=== PATIENT | female | born 1990 | race Caucasian/White ===

== ENCOUNTER 2024-08-06 12:36 | Outpatient (AMB) | payer OTHER, SELFPAY ==
[2024-08-06 12:40] VITALS: BP 118/62; PULSE 103; O2SAT 98; BMI 20.7
--- NOTE | 2024-08-06 12:40 | MHC.OFFVIS ---
Vital Signs 08/06/24 12:40 Height 4 ft 11 in Weight 102 lb 4.712 oz BMI 20.7 BP 118/62 Blood Pressure Location Lt brachial Position Sitting Pulse 103 H Pulse Source Pulse Oximeter Pulse Oximetry (%) 98 Oxygen Delivery Method Room Air Intake Visit Reasons: polyarthritis/CM APT Intake Note: Patient presents for follow up on polyarthritis and patient is requesting refill of the Benlysta Allergies No Known Allergies Allergy (Verified 08/06/24 12:44) HPI HPI polyarthritis/CM APT: Details: During the summer she had surgery for endometriosis. She continues to experience gassiness with abdominal pain. She has seen GI and reports a colonoscopy was normal. She has not followed up with GI. She stopped taking OTC simethicone. She has not been on hydroxychloroquine for 1 month due to concern for hydroxychloroquine causing GI discomfort and gassiness. She has a rash on her leg that started yesterday. She denies fevers, oral ulcers, dyspnea, pleurisy, Raynaud's phenomenon, urinary symptoms. She has been going to the gym and has pain associated with her workout. No new joint swelling. [facility] Medical History (Updated 08/06/24 @ 15:43 by Joe Sandoval MD) Endometriosis determined by laparoscopy Endometriosis Polyarthritis Family History (Updated 08/06/24 @ 12:54 by Latia Avendaño CMA) Mother Diabetes Father Multiple sclerosis Social History (Updated 08/06/24 @ 12:55 by Latia Avendaño CMA) Alcohol intake: current Comment: socially Patient Tobacco Use Status: Never used Tobacco Review of Systems Const All systems reviewed & are unremarkable except as noted in HPI and below Physical Exam Vital Signs: Last Vital Signs Pulse 103 H 08/06/24 12:40 BP 118/62 08/06/24 12:40 Pulse Ox 98 08/06/24 12:40 Oxygen Delivery Method Room Air 08/06/24 12:40 BMI result Body Mass Index 20.7 Const Other: General: Comfortable CVS: RRR Respiratory: clear to auscultation bilaterally. Good respiratory effort Skin: No lesions seen MSK: No tenderness of upper extremities or synovitis present. Good range of motion of upper extremities. Tender bilateral knees. Good range of motion of lower extremities. Assessment & Plan Assessment & Plan (1) Systemic lupus erythematosus: Comment: Diagnosed in 2021 with secondary Sjogren syndrome. Positive GERALDINE 1:640, double-stranded DNA, SSA antibody, low C4, elevated ESR, hair loss, inflammatory arthritis, brain fog, livedo reticularis on back. Hydroxychloroquine started 11/14/2021. Methotrexate 03/16/2022 to 07/17/2022 discontinued due to GI upset. IV Benlysta started 05/17/2022 and changed to subcutaneous injection 06/16/2023 for convenience. Last hydroxychloroquine surveillance exam 01/15/2024. SLE is controlled on her current regimen. She has been experiencing chronic gassiness with abdominal discomfort. We will change hydroxychloroquine to brand Plaquenil in case she is experiencing side effects from hydroxychloroquine, which can be offset by brand Plaquenil. 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 service 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 (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) drug therapy Category: Medical Plan: See above (3) Sjogren syndrome: Comment: Sicca symptoms are controlled Code(s): M35.00 - Sjogren syndrome, unspecified Category: Medical Qualifiers: Sjogren organ or system involvement: without extraglandular involvement Qualified Code(s): M35.00 - Sjogren syndrome, unspecified Plan: Monitor clinically Orders: Orders Erythrocyte Sedimentation Rate Today M32.9 - Systemic lupus erythematosus, unspecified, Z79.899 - Other fdc (current) drug therapy Complete Blood Count Auto Diff Today Z79.60 - termite control service 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 (current) use of unspecified immunomodulators and immunosuppressants Creatinine Today Z79.60 - termite control service 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 (current) use of unspecified immunomodulators and immunosuppressants Aspartate Amino Transferase Today Z79.60 - termite control service 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 (current) use of unspecified immunomodulators and immunosuppressants Complement C3 Today M32.9 - Systemic lupus erythematosus, unspecified, Z79.899 - Other termite control service 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 (current) drug therapy Alanine Aminotransferase Today Z79.60 - FDC (current) use of unspecified immunomodulators and immunosuppressants C Reactive Protein Today M32.9 - Systemic lupus erythematosus, unspecified, Z79.899 - Other termite control service 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 (current) drug therapy Complement C4 Today M32.9 - Systemic lupus erythematosus, unspecified Anti DNA DS Antibody Today M32.9 - Systemic lupus erythematosus, unspecified, Z79.899 - Other termite control service 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 (current) drug therapy UA w Microscopic Today M32.9 - Systemic lupus erythematosus, unspecified Protein Creatinine Ratio, Ur Today M32.9 - Systemic lupus erythematosus, unspecified Medications: New belimumab (Benlysta) inject into upper thigh or abdomen; rotate sites PA needed. Continuity of treatment 200 mg subcut QWEEK 4 mL 2RF hydroxychloroquine 200 mg PO DAILY 90 tabs 1RF Plaquenil (hydroxychloroquine) Please process PA for brand only. 200 mg PO DAILY 30 tabs 5RF NS Coding Level of Care Code Est Pt Level 4 (13906) Complex EM visit Add On G2211 Diagnoses Other forms of systemic lupus erythematosus, unspecified organ involvement status M32.8 Systemic lupus erythematosus organ involvement: unspecified Systemic lupus erythematosus type: other Other fdc (current) drug therapy Z79.899 Sjogren's syndrome without extraglandular involvement M35.00 Sjogren organ or system involvement: without extraglandular involvement
== END 2024-08-06 13:28 | disposition home or self-care (01) ==
PROVIDERS: PCP Internal Medicine Rheumatology; Visit Provider Internal Medicine Rheumatology
DX: M32.8 Other forms of systemic lupus erythematosus (principal); Z79.899 Other long term (current) drug therapy; M35.00 Sjogren syndrome, unspecified
CPT/HCPCS: 99214; G2211

== ENCOUNTER → 2024-08-06 12:36 | Outpatient (BNVA) | payer OTHER, SELFPAY | PROVIDERS: PCP Internal Medicine Rheumatology; Visit Provider Internal Medicine Rheumatology | DX: M32.8 Other forms of systemic lupus erythematosus (principal); M35.00 Sjogren syndrome, unspecified; Z79.899 Other long term (current) drug therapy | CPT/HCPCS: 99212 ==

== ENCOUNTER 2024-11-05 13:33 | Outpatient (AMB) | payer OTHER, SELFPAY ==
[2024-11-05 13:46] VITALS: BP 90/50; PULSE 86; O2SAT 97; BMI 21.1
--- NOTE | 2024-11-05 13:46 | MHC.OFFVIS ---
Vital Signs 11/05/24 13:46 Height 4 ft 11 in Weight 104 lb 4.458 oz BMI 21.1 BP 90/50 L Blood Pressure Location Lt brachial Position Sitting Pulse 86 Pulse Source Pulse Oximeter Pulse Oximetry (%) 97 Oxygen Delivery Method Room Air Intake Visit Reasons: 3 mo follow up Intake Note: Patient presents for follow up on polyarthritis. Right hand pain for the past month. Allergies No Known Allergies Allergy (Verified 08/06/24 12:44) HPI HPI 3 mo follow up: Details: MS 1-2 hours. R hand swelling started on and off for a month. She has tightness in chest with exertion such as when she is using treadmill. No fevers, rash, frothy urine or dysuria or hematuria. +urinary frequency Intermittent pleurisy Intermittent ulcers in mouth PFSH Medical History Endometriosis determined by laparoscopy Endometriosis Polyarthritis Family History Mother Diabetes Father Multiple sclerosis Social History Alcohol intake: current Comment: socially Patient Tobacco Use Status: Never used Tobacco Physical Exam Vital Signs: Last Vital Signs Pulse 86 11/05/24 13:46 BP 90/50 L 11/05/24 13:46 Pulse Ox 97 11/05/24 13:46 Oxygen Delivery Method Room Air 11/05/24 13:46 BMI result Body Mass Index 21.1 Const Other: General: Comfortable CVS: RRR Respiratory: clear to auscultation bilaterally. Good respiratory effort Skin: No lesions seen MSK: Tenderness of bilateral PIP in hands. Mild synovitis of right 2nd and 4th PIP. Normal range of motion of upper extremities. Tender bilateral knees. Increased laxity of bilateral patella. Normal range of motion of lower extremities. Assessment & Plan Assessment & Plan (1) Systemic lupus erythematosus: Comment: She has developed mild inflammatory arthritis involving her right hand, intermittent pleurisy and urinary frequency. I have ordered labs to assess for lupus disease activity and urine studies with culture to rule out UTI. She has been experiencing chronic gassiness with abdominal discomfort. I will change hydroxychloroquine to brand Plaquenil in case she is experiencing side effects from hydroxychloroquine, which can be offset by brand Plaquenil. 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 Positive GERALDINE 1:640, double-stranded DNA, SSA antibody, low C4, elevated ESR, hair loss, inflammatory arthritis, brain fog, livedo reticularis on back. Hydroxychloroquine started 11/14/2021. Methotrexate 03/16/2022 to 07/17/2022 discontinued due to GI upset. IV Benlysta started 05/17/2022 and changed to subcutaneous injection 06/16/2023 for convenience. Code(s): M32.9 - Systemic lupus erythematosus, unspecified Category: Medical Qualifiers: Systemic lupus erythematosus organ involvement: unspecified Systemic lupus erythematosus type: other Qualified Code(s): M32.8 - Other forms of systemic lupus erythematosus Plan: PA for brand Plaquenil 200 mg daily due to GI side effect of gassiness and abdominal discomfort. Last VF 07/2024. Continue Benlysta 200 mg subcutaneous injection weekly Labs for disease and drug monitoring on high-risk medication ordered. She will return for labs because she is feeling dizzy at this time. Her blood pressure is 90/50. Encouraged her to hydrate well. If urine studies are negative for UTI, I will prescribe prednisone course I recommend PCP follow-up due to decreased appetite and ongoing GI symptoms. 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 Code(s): M22.41 - Chondromalacia patellae, right knee; M22.42 - Chondromalacia patellae, left knee Category: Medical Plan: PT ordered (3) Other group home (current) drug therapy: Code(s): Z79.899 - Other group home (current) drug therapy Category: Medical Plan: See above (4) Sjogren syndrome: Comment: Sicca symptoms are controlled Code(s): M35.00 - Sjogren syndrome, unspecified Category: Medical Qualifiers: Sjogren organ or system involvement: without extraglandular involvement Qualified Code(s): M35.00 - Sjogren syndrome, unspecified Plan: Monitor clinically Orders: Orders Urine Culture Today R35.0 - Frequency of micturition PT Evaluation and Treatment Today M22.41 - Chondromalacia patellae, right knee, M22.42 - Chondromalacia patellae, left knee Coding Level of Care Code Est Pt Level 4 (21346) Complex EM visit Add On G2211 Diagnoses Other forms of systemic lupus erythematosus, unspecified organ involvement status M32.8 Systemic lupus erythematosus organ involvement: unspecified Systemic lupus erythematosus type: other Chondromalacia of both patellae M22.41; M22.42 Other group home (current) drug therapy Z79.899 Sjogren's syndrome without extraglandular involvement M35.00 Sjogren organ or system involvement: without extraglandular involvement
--- OUTSIDE RECORDS SUMMARY | 2024-11-05 16:25 | XMS_ITS | Encounter Summary ---
Author Organization [facility] Address [address] [place] [address] Care Team Providers Care Quality Assurance Supervisor Chassis Name Role Phone Mariaelena Bee DO Primary Care Provider [phone] Reason for Referral * Consultation (Routine) - Authorized Specialty Diagnoses / Procedures Referred By Contact Referred To Contact Physical Medicine and Rehabilitation Diagnoses Postural low back pain Kat Fraser NP [address] [place] [address] Phone: tel: fax: [facility] [address] [place] [address] Phone: tel: fax: Referral ID Status Reason Start Date Expiration Date Visits Requested Visits Authorized [id number] Authorized Specialty Services Required 10/31/2024 10/31/2025 1 1 Reason for Visit * Reason Onset Date Comments Referral 10/31/2024 Encounter Details Date Type Department Care Team (Late st Contact Info) Description 10/31/2024 Telephone Internal Medicine - [facility] [address] [place] [address] Mariaelena Bee DO [address] [place] [address] Referral Social History Tobacco Use Types Packs/Day Years Used Date Smoking Tobacco: Never Smokeless Tobacco: Never Alcohol Use Standard Drinks/Week Comments Yes 0 (1 standard drink = 0.6 oz pur e alcohol) Comments No Sex and Gender Information Value Date Recorded Sex Assigned at Not on file Legal Sex Female 8:28 AM EST Gender Identity Not on file Sexual Orientation Not on file documented as of this encounter Progress Notes * Janneth Cano MA - 10/31/2024 4:54 PM EST Referral pending. * Cheryl Wheeler - 10/31/2024 4:49 PM EST Ok thank you. The pt stated that she wasn't sure if they were still there, she said that it would be ok to do the referral to another location.Any location that is covered by her insurance is ok withher. Thank you * Lizzie Lowe MA - 10/31/2024 4:41 PM EST We do not have physiatry at the [facility] any longer, where does pt want to go? * Cheryl Wheeler - 10/31/2024 4:24 PM EST Referral Request: What insurance does the patient have today[facility] Referrals cannot be processed if the insurance is not accurate. If the insurance listed above in red is NO BILLING INFORMATION FOUND FOR THIS ENCOUTNER The patients correct insurance must be obtained and registered in [facility] or their referral can not be processed. Is this a retro request? no. If yes for what date of service do you need the retro referral? not applicable Who is calling to request this referral? pt If the caller is not the patient, what is their name? not applicable Ask the patient WHO referred them to this specialty: Patient self referred FIRST and LAST NAME of SPECIALIST PATIENT is seeing: unsure What specialty is this? physiatry DIAGNOSIS Patient is being seen for (Not a body part or a procedure): postural issues/muscular pain Have you seen this SPECIALIST for this PROBLEM/DX before? If YES, when? Yes. 5 years Have you checked REVIEW or the APPT DESK to see if this referral has already been done or has visits left? yes Is this visit: Follow Up Address of Specialist: [facility] [address] [place] Phone # of Specialist: [phone] Fax #: (if applicable): unknown Does patient have an appointment scheduled?: no Date of appointment- (including a retro-request): n/a Is this appointment related to: n/a documented in this encounter Plan of Treatment Scheduled Referrals Name Type Priority Associated Diagnoses Order Schedule Ambulatory referral to Physical Medicine Rehab Outpatient Referral Routine Postural low back pain 1 Occurrences starting 10/31/2024 until 10/31/2025 documented as of this encounter Visit Diagnoses Diagnosis Postural low back pain- Primary Lumbago documented in this encounter Care Teams Quality Assurance Supervisor Chassis Relationship Specialty Start Date End Date Mariaelena Bee DO [address] [place] [address] PCP - General 06/27/24 documented as of this encounter
--- OUTSIDE RECORDS SUMMARY | 2024-11-05 16:25 | XMS_ITS | Clinical Summary ---
Author Organization [facility] [address] [facility] Building Address [address] [place] [address] Phone Care Team Providers Care Bilingual Legal Assistant Name Role Phone Mariaelena Bee DO Primary Care Provider [phone] Allergies Active Allergy Reactions Criticality Noted Date Comments Other 08/19/2021 Seasonal Medications belimumab (Benlysta) 200 mg/mL auto-injector Inject 200 mg into the skin once a week. Active UNABLE TO FIND Apply topically. MINOXIDIL EX Active hydroxychloroqui ne (PLAQUENIL) 200 mg tablet Take 1 tablet (200 mg total) by mouth 1 (one) time each day. 2 Active amphetamine-dext roamphetamine (ADDERALL) 20 mg tablet Take 1.5 tablets (30 mg total) by mouth 1 (one) time each day. Active turmeric 400 mg capsule Take by mouth. 0 Active OMEGA-3 FATTY ACIDS ORAL Take by mouth. [place]-3 Fatty Acids (FISH OIL) 600 MG Cap 0 Active famotidine (PEPCID) 20 mg tablet TAKE 1 TABLET BY MOUTH TWICE A DAY 180 tablet 1 4 Active fluticasone propionate (FLONASE) 50 mcg/actuation nasal spray Administer 2 sprays into each nostril 1 (one) time each day if needed for rhinitis. 48 mL 1 4 Active benzoyl peroxide (BENZAC AC) 10 % external wash Apply 1 Application topically 1 (one) time each day. 5 Active ketoconazole (NIZORAL) 2 % shampoo Apply 1 Application topically 2 (two) times a week. 5 Active LORazepam (ATIVAN) 0.5 mg tablet Take 1 tablet (0.5 mg total) by mouth every 8 (eight) hours if needed. Max Daily Amount: 1.5 mg 5 Active norethindrone (MICHELE,MERVIN,HE ATHER,MICRONOR) 0.35 mg tablet Take 1 tablet (0.35 mg total) by mouth 1 (one) time each day. 28 tablet 11 5 026 Active fexofenadine (PIPPA) 180 mg tabletIndication s:Ear itch Take 1 tablet (180 mg total) by mouth 1 (one) time each day if needed (allergies). 90 tablet 5 Active albuterol HFA (PROAIR HFA ; PROVENTIL HFA ; VENTOLIN HFA) 90 mcg/actuation inhalerIndicatio ns:Mild intermittent reactive airway disease without complication Inhale 2 puffs by mouth every 6 (six) hours if needed for wheezing. 6.7 g 1 5 Active naproxen (NAPROSYN) 500 mg tablet Take 1 tablet (500 mg total) by mouth 2 (two) times a day with meals. 180 each 4 025 nystatin (MYCOSTATIN) 100,000 unit/mL suspension Take 7.5 mL by mouth 3 (three) times a day for 7 days. Swish in mouth and spit out. 150 mL 5 025 Active Problems Problem Noted Date Diagnosed Date Secondary Sjogren's syndrome 11/08/2021 Systemic lupus erythematosus 10/18/2021 Overview (07/03/2024): [facility] Shoulder pain, bilateral 08/19/2021 Endometriosis 03/02/2020 Migraine with aura and witho ut status migrainosus, not intractable 08/23/2019 Overview (07/03/2024): Dr Ferguson PTSD (post-traumatic stress disorder) 05/07/2019 ADHD 04/25/2019 Overview (07/03/2024): [facility] Allergic rhinitis 04/25/2019 Anxiety 04/25/2019 GERD (gastroesophageal reflux disease) 9 Ovarian cyst 04/25/2019 Encounters Date Type Department Care Team Description 10/31/2024 Telephone Internal Medicine - [address] [phone] Mariaelena Bee DO Referral 10/02/2024 11:30 AM EST Office Visit Marketing Support Specialist - [address] [phone] Popeye Morris MD Oral thrush (Primary Dx); Mild intermittent reactive airway disease without complication 09/30/2024 Telephone Internal Medicine - [address] [phone] Mariaelena Bee DO Thrush (mouth) 09/12/2024 Telephone Obstetrics and Gynecology - [address] [phone] Haley Abad DO Vaginitis/Bacterial Vaginosis 09/04/2024 1:30 PM EST Office Visit Obstetrics and Gynecology - [address] [phone] Haley Abad DO Chronic pelvic pain in female (Primary Dx); Endometriosis 09/03/2024 2:00 PM EST Consult Gastroenterology - [place] [address] [place] [id number] Brenda Lowery NP Abdominal bloating (Primary Dx); Gastroesophageal reflux disease without esophagitis; Gassiness 08/22/2024 6:05 PM EST - 08/22/2024 11:59 PM EST Hospital Encounter Radiology Department - [address] [phone] Pelvic pain in female Discharge Disposition: Home or Self Care from Last 3 Months Immunizations Name Administration Dates Next Due HPV 9-valent (Gardisil) 9yo to less than 46yo 11/03/2015 HPV, Quadrivalent 08/28/2015,11/14/2007,06/05/20 07 Hepatitis B (Emzinuz-I-Myjjc , Recombivax HB-Adult) 19yo and older 09/13/2016,06/09/2010,06/27/2001,02/16,01/11/2001 Influenza trivalent, 0.5mL, preservative free (Fluarix; FluLaval; Fluzone) ages 6mo and older (Afluria) 3 years and older 08/19/2008 MMR, measles mumps and rubel la Live (Priorix; M-M-R II) 12mo and older 09/13/2016,06/09/2010,04/11/1995,12/01 Meningococcal MCV4P 06/05/2007 Td Tetanus diptheria (Tdvax) 7yo and older 12/02/2021,06/13/2007 Tdap Tetanus diptheria acell ular pertussis (Boostrix; Adacel) 7yo and older 06/05/2007 Surgical History Surgery Date Site/Laterality Comments OTHER SURGICAL HISTORY PROCEDURE: ---- OTHER ----; COMMENT: therapeutic OTHER SURGICAL HISTORY PROCEDURE: ---- OTHER ----; COMMENT: laser PRK on both eyes. OTHER SURGICAL HISTORY PROCEDURE: ---- OTHER ----; COMMENT: wisdom teeth removal under general. OTHER SURGICAL HISTORY 01/2024 PROCEDURE: HISTORY OTHER; COMMENT: endometriosis Medical History Medical History Date Comments Acne 04/25/2019 DX:Acne ADD (attention deficit disorder) 04/25/2019 DX:ADD (attention deficit disorder) Anxiety 04/25/2019 DX:Anxiety Depression 04/25/2019 DX:Depression GERD (gastroesophageal reflu x disease) 04/25/2019 DX:GERD (gastroesophageal re flux disease) Ovarian cyst 04/25/2019 DX:Ovarian cyst Allergic rhinitis 04/25/2019 DX:Allergic rh initis History of recurrent ear infection 04/25/2019 DX:History of recurrent ear infection; COMMENT: Prevented w/ persistent use of antihystamines Carpal tunnel syndrome 04/25/2019 DX:Carpal tunnel syndrome Herpes zoster 04/25/2019 DX:Herpes zoster ; COMMENT: 07/2017-Txd w/ Valtrex & Gabapentin Family History Medical History Relation Name Comments Breast cancer Aunt 1 <age 40 Other: Other Aunt 2 precancerous ?o varian cyst Other: guillian barre syndrome Father Heart attack Maternal Grandfather Diabetes Maternal Grandmother Diabetes Mother asthma, fibroid s Bladder Cancer Paternal Grandfather age 70, CAD Diabetes Paternal Grandmother Osteopo rosis Hypertension Paternal Grandmother Asthma Sister 1 Other: hip dysplasia Sister 2 Relation Name Status Comments Aunt 1 Aunt 2 Father Alive Maternal Grandfather Maternal Grandmother Alive Mother Alive Paternal Grandfather Paternal Grandmother Alive Sister 1 Alive Sister 2 Alive Sister 3 Alive Sister 4 Alive Social History Tobacco Use Types Packs/Day Years Used Date Smoking Tobacco: Never Smokeless Tobacco: Never Tobacco Cessation:Counseling Given: Not Answered Alcohol Use Standard Drinks/Week Comments Yes 0 (1 standard drink = 0.6 oz pur e alcohol) Comments No Sex and Gender Information Value Date Recorded Sex Assigned at Not on file Legal Sex Female 8:28 AM EST Gender Identity Not on file Sexual Orientation Not on file Obstetrics History Last Filed Vital Signs Vital Sign Reading Time Taken Comments Blood Pressure 105/70 10/02/2024 11:39 AM EST Pulse 95 10/02/2024 11:39 AM EST Temperature 36.7 ??C (98.1 ??F) 07/05/2024 6:05 AM ES T Respiratory Rate 18 09/04/2024 1:44 PM EST Oxygen Saturation 96% 09/03/2024 2:07 PM EST Inhaled Oxygen Concentration - - Weight 48 kg (105 lb 12.8 oz) 10/02/2024 11:39 A M EST Height 149.9 cm (4' 11 ) 10/02/2024 11:39 AM EST Body Mass Index 21.37 10/02/2024 11:39 AM EST Plan of Treatment Health Maintenance Due Date Last Done Comments COVID-19 Vaccine (#1) 1995 Pneumococcal Vaccine: Pediatrics (0 to 5 Years) and At-Risk Patients (6 to 64 Years) (1 of 2 - PCV) 2009 Depression Screening 08/06/2022 Social Influencers of Health Screening 08/06/2022 Influenza Vaccine (#1) 2024 08/19/2008 Cholesterol Screening (Lipid Panel) 02/06/2029 02/07/2024, 02/07/2024 Cervical Cancer Screening: HPV 04/01/2029 04/01/2024 DTaP,Tdap,and Td Vaccines (3 - Td or Tdap) 12/03/2031 12/02/2021, 06/13/2007, 06/05/2007 Meningococcal ACWY Vaccine Completed 06/05/2007 HPV Vaccines Completed 11/03/2015, 08/2015, 11/14/2007, Additional history exists Hepatitis B Vaccines Completed 09/13/2016, 06/09/2010, 06/27/2001, Additional history exists MMR Vaccines Completed 09/13/2016, 05/28, 04/11/1995, Additional history exists HIV Screening Completed 04/01/2024, 04/01/2024 Hepatitis C Screening Completed 04/01/2024 HIB Vaccines Aged Out No longer eligi ble based on patient's age to complete this topic Hepatitis A Vaccines Aged Out No long er eligible based on patient's age to complete this topic IPV Vaccines Aged Out No longer eligi ble based on patient's age to complete this topic Meningococcal B Vacine Aged Out No lo nger eligible based on patient's age to complete this topic RSV Immunization Patients Under 20 months Aged Out No longer eligible based on patient's age to complete this topic Varicella Vaccines Aged Out No longer eligible based on patient's age to complete this topic Procedures Procedure Name Priority Date/Time Associated Diagnosis Comments US PELVIS NON OB COMPLETE W TRANSVAGINAL Routine 08/22/2024 6:33 PM EST Pelvic pain in female DANIEL URINE CULTURE TUBE Routine 08/14/2024 11:10 AM EST Urinary frequency URINALYSIS WITH REFLEX MICROSCOPIC AND CULTURE Routine 08/14/2024 11:10 AM EST Urinary frequency CBC WITH AUTO DIFFERENTIAL Routine 08/14/2024 11:10 AM EST Thrush HEMOGLOBIN A1C Routine 08/14/2024 11:10 AM EST Urinary frequency URINALYSIS WITH REFLEX MICROSCOPIC AND CULTURE Routine 08/14/2024 11:10 AM EST Urinary frequency CBC AND DIFFERENTIAL Routine 08/14/2024 11:10 AM EST Thrush COMPREHENSIVE METABOLIC PANEL Routine 08/14/2024 11:10 AM EST Urinary frequency Abdominal pain, unspecified abdominal location DIABETES EYE EXAM 08/07/2024 HM HPV Routine 04/01/2024 HEPATITIS C SCREENING Routine 04/01/2024 HIV SCREENING Routine 04/01/2024 LIPID PANEL Routine 02/07/2024 from Last 3 Months or Most Recently Relevant to Health Maintenance Results * US Pelvis Non OB Complete w Transvaginal (08/22/2024 6:33 PM EST) Anatomical Region Laterality Modality Body, Pelvis Ultrasound 08/23/2024 9:27 AM EST Impressions 08/23/2024 9:31 AM EST Impression: Normal pelvic ultrasound. -------- FINAL REPORT -------- Dictated By: Bradford Trinh Dictated Date: 08/23/2024 09:27 ET Assigned Physician: Bradford Trinh Reviewed and Electronically Signed By: Bradford Trinh Signed Date: 08/23/2024 09:31 ET Workstation ID: [id number] Transcribed By: Self Edit Transcribed Date: 08/23/2024 09:27 ET Narrative 08/23/2024 9:31 AM EST History: Pelvic pain. Pelvic ultrasound: The pelvis was scanned transabdominally for maximum [id number], and then transvaginally for optimum delineation of the uterus and ovaries. The uterus is normal in size, configuration and echogenicity. It measures 7.4 x 3.2 x 4.5 cm. There is no appreciable myometrial or endometrial abnormality. The endometrial thickness is 9 mm maximum. The ovaries are normal in size, configuration and echogenicity. Right ovarian volume is 9.4 cc. Left ovarian volume is 6.1 cc. ??Resolving follicles are noted bilaterally. ??There is no free fluid. ??Normal ovarian venous and arterial flow were documented by duplex and color Doppler evaluation bilaterally. ??No abnormal adnexal masses or fluid collections are demonstrated. Procedure Note Bradford Trinh MD - 08/23/2024 History: Pelvic pain. Pelvic ultrasound: The pelvis was scanned transabdominally for [id number], and then transvaginally for optimum delineation of theuterus and ovaries. The uterus is normal in size, configuration andechogenicity. It measures 7.4 x 3.2 x 4.5 cm. There is no appreciablemyometrial or endometrial abnormality. The endometrial thickness is 9 mmmaximum. The ovaries are normal in size, configuration and echogenicity. Rightovarian volume is 9.4 cc. Left ovarian volume is 6.1 cc. Resolvingfollicles are noted bilaterally. There is no free fluid. Normal ovarianvenous and arterial flow were documented by duplex and color Dopplerevaluation bilaterally. No abnormal adnexal masses or fluid collectionsare demonstrated. IMPRESSION: Impression: Normal pelvic ultrasound. -------- FINAL REPORT -------- Dictated By: Bradford Trinh Dictated Date: 08/23/2024 09:27 ET Assigned Physician: Bradford Trinh Reviewed and Electronically Signed By: Bradford Trinh Signed Date: 08/23/2024 09:31 ET Workstation ID: [id number] Transcribed By: Self Edit Transcribed Date: 08/23/2024 09:27 ET us Lupis Mclean RUST US PROCEDURES Final Res ult * Urinalysis with reflex microscopic and culture (08/14/2024 11:10 AM EST) Specific [place] Urine 1.012 1.003 - 1.030 LAB URINALYSIS - AUTOMATED METHOD 08/14/2024 2:33 PM EST [facility] pH, Urine 8.0 5.0 - 8.0 pH LAB URINALYSIS - AUTOMATED METHOD 08/14/2024 2:33 PM [facility] Leukocytes, Urine Negative Negative LAB URINALYSIS - AUTOMATED METHOD 08/14/2024 2:33 PM [facility] Nitrite, Urine Negative Negative LAB URINALYSIS - AUTOMATED METHOD 08/14/2024 2:33 PM [facility] Protein, Urine Negative <=Trace mg/dL LAB URINALYSIS - AUTOMATED METHOD 08/14/2024 2:33 PM [facility] Glucose, Urine Negative Negative mg/dL LAB URINALYSIS - AUTOMATED METHOD 08/14/2024 2:33 PM [facility] Ketones, Urine Negative Negative mg/dL LAB URINALYSIS - AUTOMATED METHOD 08/14/2024 2:33 PM [facility] Urobilinogen, Urine 0.2 0.2 - 1.0 mg/dL LAB URINALYSIS - AUTOMATED METHOD 08/14/2024 2:33 PM [facility] Bilirubin, Urine Negative Negative LAB URINALYSIS - AUTOMATED METHOD 08/14/2024 2:33 PM [facility] Blood, Urine Negative Negative LAB URINALYSIS - AUTOMATED METHOD 08/14/2024 2:33 PM [facility] Urine Urine specimen obtained by clean catch procedure / Unknown Non-blood Collection / Unknown 08/14/2024 11:10 AM EST 08/14/2024 11:10 AM EST us Nomi Land CARDIOVASCULAR TECHNICIAN LAB URINE ORDERABLES Final Res ult [facility] [address] [place] [address], * Daniel urine culture tube (08/14/2024 11:10 AM EST) Extra Tube Hold for add-ons. 08/14/2024 5:01 PM [facility] Comment:Auto resulted. Urine Urine specimen obtained by clean catch procedure / Unknown Non-blood Collection / Unknown 08/14/2024 11:10 AM EST 08/14/2024 11:10 AM EST us Nomi Land CARDIOVASCULAR TECHNICIAN LAB URINE ORDERABLES Final Res ult [facility] [address] [place] [address], [place] [phone] * CBC auto differential (08/14/2024 11:10 AM EST) WBC 6.0 4.8 - 10.8 K/mcL LAB HEMETOLOGY METHOD 08/14/2024 2:23 PM [facility] RBC 3.80 3.80 - 4.80 M/mcL LAB HEMETOLOGY METHOD 08/14/2024 2:23 PM [facility] Hemoglobin 11.7 11.5 - 16.0 g/dL LAB HEMETOLOGY METHOD 08/14/2024 2:23 PM [facility] Hematocrit 36.1 35.0 - 47.0 % LAB HEMETOLOGY METHOD 08/14/2024 2:23 PM [facility] MCV 94.5 79.0 - 98.0 FL LAB HEMETOLOGY METHOD 08/14/2024 2:23 PM [facility] MCH 30.6 27.0 - 32.0 pcg LAB HEMETOLOGY METHOD 08/14/2024 2:23 PM [facility] MCHC 32.4 32.0 - 37.0 g/dL LAB HEMETOLOGY METHOD 08/14/2024 2:23 PM [facility] RDW 12.2 11.0 - 15.0 % LAB HEMETOLOGY METHOD 08/14/2024 2:23 PM [facility] Platelets 246 130 - 400 K/mcL LAB HEMETOLOGY METHOD 08/14/2024 2:23 PM [facility] MPV 10.8 7.0 - 11.0 FL LAB HEMETOLOGY METHOD 08/14/2024 2:23 PM [facility] NRBC 0.0 <1.0 % LAB HEMETOLOGY METHOD 08/14/2024 2:23 PM [facility] NRBC Absolute 0.00 <0.10 K/mcL LAB HEMETOLOGY METHOD 08/14/2024 2:23 PM [facility] Neutrophils Relative 68.4 % LAB HEMETOLOGY METHOD 08/14/2024 2:23 PM [facility] Lymphocytes Relative 21.0 % LAB HEMETOLOGY METHOD 08/14/2024 2:23 PM [facility] Monocytes Relative 9.3 % LAB HEMETOLOGY METHOD 08/14/2024 2:23 PM [facility] Eosinophils Relative 0.7 % LAB HEMETOLOGY METHOD 08/14/2024 2:23 PM [facility] Basophils Relative 0.3 % LAB HEMETOLOGY METHOD 08/14/2024 2:23 PM [facility] Immature Granulocytes Relative 0.3 % LAB HEMETOLOGY METHOD 08/14/2024 2:23 PM [facility] Neutrophils Absolute 4.10 1.50 - 7.00 K/mcL LAB HEMETOLOGY METHOD 08/14/2024 2:23 PM [facility] Lymphocytes Absolute 1.26 1.00 - 5.00 K/mcL LAB HEMETOLOGY METHOD 08/14/2024 2:23 PM [facility] Monocytes Absolute 0.56 0.20 - 1.00 K/mcL LAB HEMETOLOGY METHOD 08/14/2024 2:23 PM [facility] Eosinophils Absolute 0.04 0.00 - 0.50 K/mcL LAB HEMETOLOGY METHOD 08/14/2024 2:23 PM [facility] Basophils Absolute 0.02 0.00 - 0.20 K/mcL LAB HEMETOLOGY METHOD 08/14/2024 2:23 PM EST [facility] Immature Granulocytes Absolute 0.02 0.00 - 0.03 K/mcL LAB HEMETOLOGY METHOD 08/14/2024 2:23 PM EST [facility] Blood Venous blood specimen / Unknown Venipuncture / Unknown 08/14/2024 11:10 AM EST 08/14/2024 11:10 AM EST Nomi Land NP LAB BLOOD ORDERABLES Final Res ult Performing Organization Address City/[facility]/ZIP Co de Phone Number [facility] [address] [place] [address], [place] [phone] * Hemoglobin A1c (08/14/2024 11:10 AM EST) Hemoglobin A1C 5.5 <6.5 % LAB CHEMISTRY METHOD 08/14/2024 8:30 PM [facility] Mean Bld Glu Estim. 111 mg/dL LAB CHEMISTRY METHOD 08/14/2024 8:30 PM EST [facility] Blood Venous blood specimen / Unknown Venipuncture / Unknown 08/14/2024 11:10 AM EST 08/14/2024 11:10 AM EST Nomi Land NP LAB BLOOD ORDERABLES Final Res ult Performing Organization Address City/[facility]/ZIP Co de Phone Number [facility] [address] [place] [address], [place] [phone] * (ABNORMAL) Comprehensive metabolic panel (08/14/2024 11:10 AM EST) Sodium 138 133 - 145 mmol/L LAB CHEMISTRY METHOD 08/14/2024 3:02 PM EST [facility] Potassium 4.0 3.5 - 5.5 mmol/L LAB CHEMISTRY METHOD 08/14/2024 3:02 PM EST [facility] Chloride 103 96 - 110 mmol/L LAB CHEMISTRY METHOD 08/14/2024 3:02 PM [facility] CO2 27 21 - 32 mmol/L LAB CHEMISTRY METHOD 08/14/2024 3:02 PM [facility] Anion Gap 8 3 - 11 LAB CHEMISTRY METHOD 08/14/2024 3:02 PM [facility] Glucose 110(H) 70 - 100 mg/dL LAB CHEMISTRY METHOD 08/14/2024 3:02 PM [facility] BUN 11 5 - 25 mg/dL LAB CHEMISTRY METHOD 08/14/2024 3:02 PM [facility] Creatinine 0.57 0.50 - 1.10 mg/dL LAB CHEMISTRY METHOD 08/14/2024 3:02 PM [facility] eGFR 122 >=60 mL/min/1. 73m2 LAB CHEMISTRY METHOD 08/14/2024 3:02 PM [facility] Comment:Calculation based on the??Chronic Kidney Disease Epidemiology Collaboration (CKD-EPI) equation refit??without adjustment for race. BUN/Creatinine Ratio 19.3 LAB CHEMISTRY METHOD 08/14/2024 3:02 PM [facility] Calcium 9.7 8.5 - 10.5 mg/dL LAB CHEMISTRY METHOD 08/14/2024 3:02 PM [facility] AST (SGOT) 13 10 - 42 unit/L LAB CHEMISTRY METHOD 08/14/2024 3:02 PM [facility] ALT (SGPT) 19 10 - 60 unit/L LAB CHEMISTRY METHOD 08/14/2024 3:02 PM [facility] Alkaline Phosphatase 43 42 - 121 unit/L LAB CHEMISTRY METHOD 08/14/2024 3:02 PM [facility] Total Protein 7.3 6.0 - 8.0 g/dL LAB CHEMISTRY METHOD 08/14/2024 3:02 PM [facility] Albumin 4.2 3.2 - 5.0 g/dL LAB CHEMISTRY METHOD 08/14/2024 3:02 PM EST [facility] Total Bilirubin 0.3 0.0 - 1.4 mg/dL LAB CHEMISTRY METHOD 08/14/2024 3:02 PM EST [facility] Blood Venous blood specimen / Unknown Venipuncture / Unknown 08/14/2024 11:10 AM EST 08/14/2024 11:10 AM EST Nomi Land NP LAB BLOOD ORDERABLES Final Res ult [facility] [address] [place] [address], [place] [phone] * Diabetes Eye Exam (08/07/2024) Provider Raghu [employer] HEALTH MAINTENANCE Final Result * Cervical Cancer Screening: HPV (04/01/2024) [facility] Cervical Cancer Screening: HPV abstracted, negative Result [facility] Provider HEALTH MAINTENANCE Final Result * HIV Screening (04/01/2024) [facility] HIV Screening abstracted Result [facility] Provider HEALTH MAINTENANCE Final Result * Hepatitis C Screening (04/01/2024) [facility] Hepatitis C Screening abstracted Result [facility] Provider HEALTH MAINTENANCE Final Result * Lipid panel (02/07/2024) [facility] LDL/HDL Ratio 2 0 - 4 Triglycerides 112 0 - 150 mg/dL Cholesterol 191 0 - 200 mg/dL HDL 84 >=40 mg/dL LDL Cholesterol 85 0 - 100 mg/dL Blood Venous blood specimen / Unknown Result [facility] Provider LAB BLOOD ORDERABLES Linda l Result from Last 3 Months or Most Recently Relevant to Health Maintenance Insurance [facility] Care Teams Bilingual Legal Assistant Relationship Specialty Start Date End Date Mariaelena Bee DO [address] [place] [address] PCP - General 06/27/24
== END 2024-11-05 14:27 | disposition home or self-care (01) ==
LOC: HO.RHES 13:34
PROVIDERS: PCP Internal Medicine Rheumatology; Visit Provider Internal Medicine Rheumatology
DX: M32.8 Other forms of systemic lupus erythematosus (principal); M22.41 Chondromalacia patellae, right knee; M22.42 Chondromalacia patellae, left knee; Z79.899 Other long term (current) drug therapy; M35.00 Sjogren syndrome, unspecified
CPT/HCPCS: 99214; G2211

== ENCOUNTER → 2024-11-05 13:33 | Outpatient (BNVA) | payer OTHER, SELFPAY | PROVIDERS: PCP Internal Medicine Rheumatology; Visit Provider Internal Medicine Rheumatology | DX: M32.8 Other forms of systemic lupus erythematosus (principal); M22.41 Chondromalacia patellae, right knee; M22.42 Chondromalacia patellae, left knee; M35.00 Sjogren syndrome, unspecified; Z79.899 Other long term (current) drug therapy | CPT/HCPCS: 99212 ==

== ENCOUNTER 2024-11-07 15:47 | Outpatient (REF) | payer OTHER, SELFPAY ==
[2024-11-07 17:49] LABS: MANUAL DIFF FLAG NO
[2024-11-07 18:04] LABS: Basophils Percent Auto 0.2 % (0-2); Eosinophils Percent Auto 0.3 % (0-4); Hematocrit 36.6 % (37.0-47.0); Hemoglobin 12.4 g/dl (12.0-16.0); Imm Gran Abs Auto 0.02 X10*3/uL (0.00-0.03); Imm Gran Pct Auto 0.3 % (0.0-0.4); Lymphocytes Absolute Auto 1.5 X10*3/uL (1.2-4.9); Lymphocytes Percent Auto 23.5 % (20-40); Mean Corpuscular HGB Conc 33.9 g/dl (31.0-35.0); Mean Corpuscular Hemoglobin 31.2 pg (27.0-33.0); Mean Platelet Volume 10.3 fL (9.4-12.3); Monocytes Absolute Auto 0.4 X10*3/uL (0.1-1.2); Monocytes Percent Auto 6.2 % (2-11); Neutrophils Absolute Auto 4.3 x10*3/uL (2.0-8.3); Neutrophils Percent Auto 69.5 % (45-73); Platelet Count 249 X10*3/uL (160-400); Red Blood Count 3.98 X10*6/uL (4.20-5.50); Red Cell Distribution Width 11.9 % (11.0-16.0); White Blood Count 6.2 X10*3/uL (4.8-10.8)
[2024-11-07 18:07] LABS: Alanine Aminotransferase 14 U/L (0-31); Aspartate Amino Transferase 20 U/L (5-31); C Reactive Protein 0.23 mg/dL (< or = 0.50); Estimated Glomerular Filt Rate > 60
[2024-11-07 18:52] LABS: Erythrocyte Sedimentation Rate 16 MM/HR (0-20)
--- OUTSIDE RECORDS SUMMARY | 2024-11-07 19:12 | XMS_ITS | Encounter Summary ---
Author Organization [facility] [place] [address] Care Team Providers Care Tile And Marble Setter Name Role Phone Mariaelena Bee DO Primary Care Provider [phone] Reason for Visit * Reason Onset Date Comments pt 1 11/07/2024 Encounter Details Date Type Department Care Team (Late st Contact Info) Description 11/07/2024 Telephone Internal Medicine - [place] [address] [facility] [place] [address] Mariaelena Bee DO [address] [place], [place] [id number] pt 1 Social History Tobacco Use Types Packs/Day Years [...] as of this encounter Progress Notes * Flora Wiggins - 11/07/2024 3:04 PM EDT PT-1 Request Call Cristiana/[employer] new provider or submitter number is [id number] Verify and document patients [place] Health insurance ID # (NOT [facility] ID): [id number] Payor: [id number] PLAN / Plan: [employer] MEDICAID / Product Type: *No Product type* / Patient mailing address: [address] [facility] [address] (home) Pt. demographics verified? yes If not accurate, update registration. Is this a NEW request or a RENEWAL? New request Name of treating facility: [facility] Name (first & last) of treating provider? required : bibi castillo What is the medical reason why the patient is seeing the above provider? Autoimmune condition Address/Zip code for treating provider: [address] [facility] [address] Phone # for treating provider: [phone] Is the provider in the [facility] [employer] network (do they accept [place] Health insurance)? yes What specialtly is this provider? rheumatology When is the visit scheduled for? 02-06-25 How often you will be seeing this particular provider? Do you have friends or family who can transport you to this visit? no If yes, do not complete request. Is there anything stopping you from using public transportation? If yes, explain: yes Is there a medical reason (diagnosis) why you are unable to use public transportation? If yes, explain: Yes,joint/hip pain Does patient carry self-administered oxygen? no Does patient require door through door or room to room service( ex: member cannot ambulate or wait independently outside their home/facility for transportation. no Is this is for an Adult Day Program or Suboxone clinic No If yes to above what is arrival time and what is departure time If yes to above how many days a week? Do you need a wheelchair van? no If you use a wheelchair what is the height, width & length of the wheelchair? Do you need an escort to accompany you? If yes, explain why. no Will you have an alternative pick-up address? no Do you have a service animal? no PT DOES NOT NEED RELEASE OF INFORMATION SIGNED documented in this encounter Plan of Treatment Not on file documented as of this encounter Visit Diagnoses Not on filedocumented in this encounter Care Teams Tile And Marble Setter Relationship Specialty Start Date End Date Mariaelena Bee DO [address] [place] [address] PCP - General 06/27/24 documented as of this encounter
--- OUTSIDE RECORDS SUMMARY | 2024-11-07 19:12 | XMS_ITS | Encounter Summary ---
Author Organization [facility] Address [address] [place] [address] Care Team Providers Care Bankruptcy Legal Assistant Name Role Phone Mariaelena Bee DO Primary Care Provider Reason for Visit * Reason Onset Date Comments pt 1 11/07/2024 Encounter Details Date Type Department Care Team (Late st Contact Info) Description 11/07/2024 Telephone Internal Medicine - [place] [address] [place] [address] Mariaelena Bee DO [address] [place], [place] [id number] pt 1 Social History Tobacco Use Types [...] of this encounter Progress Notes * Flora Rosenthalo - 11/07/2024 2:20 PM EDT PT-1 Request Call Cristiana/[facility] [employer] new provider or submitter number is [id number] Verify and document patients [place] Health insurance ID # (NOT [facility] ID): [id number] Patient mailing address: [address] [facility] [address] [facility] [address] [facility] [address] (home) Pt. demographics verified? yes If not accurate, update registration. Is this a NEW request or a RENEWAL? New request [facility] of [facility] facility[facility] Name (first & last) of treating provider? required : flavio talley What is the medical reason why the patient is seeing the above provider? Muscle pain Address/Zip code for treating provider: [address] [place] [address] [address] [facility], [address] Phone # for treating provider: [phone] Is the provider in the [facility] network (do they accept [place] Health insurance)? yes What specialtly is this provider? chiropractic When is the visit scheduled for? 11-12-24 How often you will be seeing this particular provider? Do you have friends or family who can transport you to this visit? no If yes, do not complete request. Is there anything stopping you from using public transportation? If yes, explain: yes Is there a medical reason (diagnosis) why you are unable to use public transportation? If yes, explain: Yes,joint pain/hip pain Does patient carry self-administered oxygen? no [...] on filedocumented in this encounter Care Teams Bankruptcy Legal Assistant Relationship Specialty Start Date End Date Mariaelena Bee DO [address] [place] [address] PCP - General 06/27/24 documented as of this encounter
--- OUTSIDE RECORDS SUMMARY | 2024-11-07 19:12 | XMS_ITS | Encounter Summary ---
Author Organization [facility] [place] [address] Care Team Providers Care Press Hand Name Role Phone Mariaelena Bee DO Primary Care Provider [phone] Reason for Visit * Reason Onset Date Comments pt 1 11/07/2024 Encounter Details Date Type Department Care Team (Late st Contact Info) Description 11/07/2024 Telephone Internal Medicine - [place] [address] [facility] [place] [address] Mariaelena Bee DO [address] [place], [place] [phone] pt 1 Social History Tobacco Use Types [...] Progress Notes * Flora Wiggins - 11/07/2024 2:17 PM EDT PT-1 Request Call Cristiana/[employer] new provider or submitter number is [id number] Verify and document patients [place] Health insurance ID # (NOT [facility] ID): [id number] Payor: [employer] PLAN / Plan: [employer] MEDICAID / Product Type: *No Product type* / Patient mailing address: [address] [facility] [address]home) Pt. demographics verified? yes If not accurate, update registration. Is this a NEW request or a RENEWAL? New request Name of treating facility: [facility] Name (first & last) of treating provider? required : What is the medical reason why the patient is seeing the above provider? Muscular issue Address/Zip code for treating provider: [address] [facility] [address] [facility] [address] Phone # for treating provider: [phone] Is the provider in the [employer] network (do they accept [place] Health insurance)? yes What specialtly is this provider? podiatry When is the visit scheduled for? 11-19-24 How often you will be seeing this particular provider? Do you have friends or family who can transport you to this visit? no If yes, do not complete request. Is there anything stopping you from using public transportation? If yes, explain: no Is there a medical reason (diagnosis) why [...] on filedocumented in this encounter Care Teams Press Hand Relationship Specialty Start Date End Date Mariaelena Bee DO [address] [place] [address] PCP - General 06/27/24 documented as of this encounter
--- OUTSIDE RECORDS SUMMARY | 2024-11-07 19:12 | XMS_ITS | Encounter Summary ---
Author Organization [facility] Address [address] [place] [address] Care Team Providers Care Livestock Ranch Hand Name Role Phone Mariaelena Bee DO Primary Care Provider [phone] Encounter Details Date Type Department Care Team (Late st Contact Info) Description 11/07/2024 Telephone Internal Medicine - [place] [address] [place] [address] Mariaelena Bee DO [address] [place] [address] Social History Tobacco Use Types Packs/Day Years [...] on file documented as of this encounter Plan of Treatment Not on file documented as of this encounter Visit Diagnoses Not on filedocumented in this encounter Care Teams Livestock Ranch Hand Relationship Specialty Start Date End Date Mariaelena Bee DO [address] [place] [address] PCP - General 06/27/24 documented as of this encounter
--- OUTSIDE RECORDS SUMMARY | 2024-11-07 19:12 | XMS_ITS | Encounter Summary ---
Author Organization [facility] Address [address] [place] [address] Care Team Providers Care Kettle Loader Name Role Phone Mariaelena Bee DO Primary Care Provider [phone] Reason for Referral * Consultation (Routine) - Authorized Specialty Diagnoses / Procedures Referred By Contact Referred To Contact Physical Medicine and Rehabilitation Diagnoses Postural low back pain Kat Fraser NP [address] [place] [address] Phone: tel: fax: [facility] [address] [facility] [address] [place] [address] Phone: tel: fax: Referral ID Status Reason Start Date Expiration Date Visits Requested Visits Authorized [id number] Authorized Specialty Services Required 10/31/2024 10/31/2025 1 1 Reason for Visit * Reason Onset Date Comments Referral 10/31/2024 Encounter Details Date Type Department Care Team (Late st Contact Info) Description 10/31/2024 Telephone Internal Medicine - [place] [address] [place] [address] Mariaelena Bee DO [address] [place] [address] Referral Social History Tobacco Use Types Packs/Day [...] We do not have physiatry at the [facility] any longer, where does pt want to go? * Cheryl Wheeler - 10/31/2024 4:24 PM EST Referral Request: What insurance does the patient have today? [facility] Referrals cannot be processed if the insurance is not accurate. If the insurance listed above in red is NO BILLING INFORMATION FOUND FOR THIS ENCOUTNER The patients correct insurance must be obtained and registered in [facility] or their referral can not be [...] this visit: Follow Up Address of Specialist: [facility] [place] [place] Phone # of Specialist: [phone] Fax #: (if applicable): unknown Does patient [...] Lumbago documented in this encounter Care Teams Kettle Loader Relationship Specialty Start Date End Date Mariaelena Bee DO [address] [facility] [place] [address] PCP - General 06/27/24 documented as of this encounter
--- OUTSIDE RECORDS SUMMARY | 2024-11-07 19:12 | XMS_ITS | Encounter Summary ---
Author Organization [facility] [place] [address] Care Team Providers Care Geophysics Scientist Name Role Phone Mariaelena Bee DO Primary Care Provider [phone] Reason for Visit * Reason Onset Date Comments pt 1 11/07/2024 Encounter Details Date Type Department Care Team (Late st Contact Info) Description 11/07/2024 Telephone Internal Medicine - [place] [address] [place] [address] Mariaelena Bee DO [address] [place], [place] [phone] pt 1 Social History Tobacco Use Types [...] Progress Notes * Flora Wiggins - 11/07/2024 2:51 PM EDT PT-1 Request Call Cristiana/[employer] new provider or submitter number is [id number] Verify and document patients [place] Health insurance ID # (NOT [facility] ID): [id number] Payor: [employer] PLAN / Plan: [employer] MEDICAID / Product Type: *No Product type* / Patient mailing address: [address] [facility] [address] (home) Pt. demographics verified? yes If not accurate, update registration. Is this a NEW request or a RENEWAL? New request Name of treating facility: [facility] Name (first & last) of treating provider? required : adarsh mcclure What is the medical reason why the patient is seeing the above provider? Skin/hair Address/Zip code for treating provider: [address] [place] [address] Phone # for treating provider: [phone] Is the provider in the [employer] network (do they accept [place] Health insurance)? yes What specialtly is this provider? dermatology When is the visit scheduled for? 11-11-24 How often you will be seeing this [...] on filedocumented in this encounter Care Teams Geophysics Scientist Relationship Specialty Start Date End Date Mariaelena Bee DO [address] [place] [address] PCP - General 06/27/24 documented as of this encounter
--- OUTSIDE RECORDS SUMMARY | 2024-11-07 19:12 | XMS_ITS | Encounter Summary ---
Author Organization [facility] [place] [address] Care Team Providers Care Laydown Machine Operator Name Role Phone Juan Jose Manriquez DO Primary Care Provider [phone] Reason for Visit * Reason Onset Date Comments pt 1 11/07/2024 Encounter Details Date Type Department Care Team (Late st Contact Info) Description 11/07/2024 Telephone Internal Medicine - [place] [address] [place] [address] Juan Jose Manriquez DO [address] [place], [place] [phone] pt 1 Social History Tobacco Use Types [...] Progress Notes * Flora Wiggins - 11/07/2024 2:12 PM EDT PT-1 Request Call Cristiana/[employer] new provider or submitter number is [id number] Verify and document patients [place] Health insurance ID # (NOT [facility] ID): [id number] Payor: [employer] PLAN / Plan: [employer] MEDICAID / Product Type: *No Product type* / Patient mailing address: [address] [facility] [address] (home) Pt. demographics verified? yes If not accurate, update registration. Is this a NEW request or a RENEWAL? New request Name of treating facility: [facility] Name (first & last) of treating provider? required : juan jose manriquez What is the medical reason why the patient is seeing the above provider? Routine visit Address/Zip code for treating provider: [address] [facility] Phone # for treating provider: [phone] Is the provider in the [facility] [employer] network (do they accept [place] Health insurance)? yes What specialtly is this provider? Adult med When is the visit scheduled for? How often you will be seeing this particular provider? Once every few months Do you have friends or family who [...] on filedocumented in this encounter Care Teams Laydown Machine Operator Relationship Specialty Start Date End Date Juan Jose Manriquez DO [address] [place] [address] PCP - General 06/27/24 documented as of this encounter
--- OUTSIDE RECORDS SUMMARY | 2024-11-07 19:12 | XMS_ITS | Clinical Summary ---
Author Organization [facility] [address] [facility] Building Address [address] [place] [address] Phone Care Team Providers Care Clam Bed Worker Name Role Phone Mariaelena Bee DO Primary Care Provider [phone] Allergies Active Allergy Reactions Criticality Noted Date Comments Other 08/19/2021 Seasonal Medications belimumab (Benlysta) 200 mg/mL auto-injector Inject 200 mg into the skin once a week. Active UNABLE TO FIND Apply topically. MINOXIDIL EX Active hydroxychloroqui ne (PLAQUENIL) 200 mg tablet Take 1 tablet (200 mg total) by mouth 1 (one) time each day. 11/09/19 22 Active amphetamine-dext roamphetamine (ADDERALL) 20 mg tablet Take 1.5 tablets (30 mg total) by mouth 1 (one) time each day. Active turmeric 400 mg capsule Take by mouth. 10/01/19 20 Active OMEGA-3 FATTY ACIDS ORAL Take by mouth. [place]-3 Fatty Acids (FISH OIL) 600 MG Cap 10/01/19 20 Active famotidine (PEPCID) 20 mg tablet TAKE 1 TABLET BY MOUTH TWICE A DAY 180 tablet 1 07/22/20 24 Active fluticasone propionate (FLONASE) 50 mcg/actuation nasal spray Administer 2 sprays into each nostril 1 (one) time each day if needed for rhinitis. 48 mL 1 07/29/20 24 Active benzoyl peroxide (BENZAC AC) 10 % external wash Apply 1 Application topically 1 (one) time each day. 09/03/19 25 Active ketoconazole (NIZORAL) 2 % shampoo Apply 1 Application topically 2 (two) times a week. 09/03/19 25 Active LORazepam (ATIVAN) 0.5 mg tablet Take 1 tablet (0.5 mg total) by mouth every 8 (eight) hours if needed. Max Daily Amount: 1.5 mg 09/03/19 25 Active norethindrone (MICHELE,MERVIN,HE ATHER,MICRONOR) 0.35 mg tablet Take 1 tablet (0.35 mg total) by mouth 1 (one) time each day. 28 tablet 11 09/04/19 25 026 Active fexofenadine (PIPPA) 180 mg tabletIndication s:Ear itch Take 1 tablet (180 mg total) by mouth 1 (one) time each day if needed (allergies). 90 tablet 10/01/19 25 Active albuterol HFA (PROAIR HFA ; PROVENTIL HFA ; VENTOLIN HFA) 90 mcg/actuation inhalerIndicatio ns:Mild intermittent reactive airway disease without complication Inhale 2 puffs by mouth every 6 (six) hours if needed for wheezing. 6.7 g 1 10/02/19 25 Active naproxen (NAPROSYN) 500 mg tablet Take 1 tablet (500 mg total) by mouth 2 (two) times a day with meals. As needed for pelvic pain. 180 each 11/08/19 25 025 Active naproxen (NAPROSYN) 500 mg tablet Take 1 tablet (500 mg total) by mouth 2 (two) times a day with meals. 180 each 07/26/20 24 025 Discontinu ed(Reorder ) nystatin (MYCOSTATIN) 100,000 unit/mL suspension Take 7.5 mL by mouth 3 (three) times a day for 7 days. Swish in mouth and spit out. 150 mL 10/02/19 25 025 Active Problems Problem Noted Date Diagnosed [...] Encounters Date Type Department Care Team Description 11/07/2024 Telephone Internal Medicine - [place] [address] [facility] [place] [address] Mariaelena Bee, DO pt 1 11/07/2024 Telephone Internal Medicine - [place] [address] [facility] [place] [phone] Mariaelena Bee, DO pt 1 11/07/2024 Telephone Internal Medicine - [place] [address] [place] [address] Mariaelena Bee, DO pt 1 11/07/2024 Telephone Internal Medicine - [place] [address] [facility] [address] Mariaelena Bee, DO 11/07/2024 Telephone Internal Medicine - [place] [address] [facility] [place] [phone] Mariaelena Bee, 11/07/2024 Telephone Internal Medicine - [place] [address] [facility], [place] [phone] Mariaelena Bee, DO pt 1 11/07/2024 Telephone Internal Medicine - [place] [address] [facility] [place] [phone] Mariaelena Bee, DO pt 1 11/07/2024 Telephone Internal Medicine - [place] [address] [facility] [place] [phone] JaMariaelnea vasquez DO pt 1 11/07/2024 Telephone Internal Medicine - [address] [phone] Mariaelena Bee DO pt 1 10/31/2024 Telephone Internal Medicine - [address] [phone] Mariaelena Bee DO Referral 10/02/2024 11:30 AM EST Office Visit Er Nurse - [address] [phone] Popeye Morris MD Oral thrush (Primary Dx); Mild intermittent reactive airway disease without complication 09/30/2024 Telephone Internal Medicine - [address] [phone] Mariaelena Bee DO Thrush (mouth) 09/12/2024 Telephone Obstetrics and Gynecology - [address] [phone] Haley Abad DO Vaginitis/Bacterial Vaginosis 09/04/2024 1:30 PM EST Office Visit Obstetrics and Gynecology - [address] [phone] Haley Abad DO Chronic pelvic pain in female (Primary Dx); Endometriosis 09/03/2024 2:00 PM EST Consult Gastroenterology - [place] [address] [place] [address] Brenda Lowery NP Abdominal bloating (Primary Dx); Gastroesophageal reflux disease without esophagitis; Gassiness 08/22/2024 6:05 PM EST - 08/22/2024 11:59 PM EST Hospital Encounter Radiology Department - [address] [address] Pelvic pain in female Discharge Disposition: Home or Self Care from Last 3 Months Immunizations Name Administration Dates Next Due HPV 9-valent (Gardisil) 9yo to less than 46yo 11/03/2015 HPV, Quadrivalent 08/28/2015,11/14/2007,06/05/20 07 Hepatitis B (Qzxbbuu-H-Mlkte , Recombivax HB-Adult) 19yo and older 09/13/2016,06/09/2010,06/27/2001,02/16,01/11/2001 [...] Urinary frequency Abdominal pain, unspecified abdominal location HM HPV Routine 04/01/2024 HEPATITIS C SCREENING [...] Signed Date: 08/23/2024 09:31 ET Workstation ID: [id number] Transcribed By: Self Edit Transcribed Date: 08/23/2024 09:27 ET Narrative 08/23/2024 9:31 AM EST History: Pelvic pain. Pelvic ultrasound: The pelvis was scanned transabdominally for maximum orjvi-hi-opuc, and then transvaginally for optimum delineation of [...] ultrasound: The pelvis was scanned transabdominally for [id number], and then transvaginally for optimum delineation of [...] Signed Date: 08/23/2024 09:31 ET Workstation ID: [id number] Transcribed By: Self Edit Transcribed Date: 08/23/2024 09:27 ET us Lupis YEAGER IMG US PROCEDURES Final Res ult * Urinalysis with reflex microscopic and culture (08/14/2024 11:10 AM EST) Specific [place] Urine 1.012 1.003 - 1.030 LAB URINALYSIS - AUTOMATED METHOD 08/14/2024 2:33 PM EST [facility] pH, Urine 8.0 5.0 - 8.0 pH LAB URINALYSIS - AUTOMATED METHOD 08/14/2024 2:33 PM [facility] Leukocytes, Urine Negative Negative LAB URINALYSIS - AUTOMATED METHOD 08/14/2024 2:33 PM [facility] Nitrite, Urine Negative Negative LAB URINALYSIS - AUTOMATED METHOD 08/14/2024 2:33 PM [facility] Protein, Urine Negative <=Trace mg/dL LAB URINALYSIS - AUTOMATED METHOD 08/14/2024 2:33 PM [facility] Glucose, Urine Negative Negative mg/dL LAB URINALYSIS - AUTOMATED METHOD 08/14/2024 2:33 PM [facility] Ketones, Urine Negative Negative mg/dL LAB URINALYSIS - AUTOMATED METHOD 08/14/2024 2:33 PM [facility] Urobilinogen, Urine 0.2 0.2 - 1.0 mg/dL LAB URINALYSIS - AUTOMATED METHOD 08/14/2024 2:33 PM [facility] Bilirubin, Urine Negative Negative LAB URINALYSIS - AUTOMATED METHOD 08/14/2024 2:33 PM [facility] Blood, Urine Negative Negative LAB URINALYSIS - AUTOMATED METHOD 08/14/2024 2:33 PM [facility] Urine Urine specimen obtained by clean catch procedure / Unknown Non-blood Collection / Unknown 08/14/2024 11:10 AM EST 08/14/2024 11:10 AM EST us Nomi Land NP LAB URINE ORDERABLES Final Res ult [facility] [address] [place] [address], * Daniel urine culture tube (08/14/2024 11:10 AM EST) Extra Tube Hold for add-ons. 08/14/2024 5:01 PM [facility] Comment:Auto resulted. Urine Urine specimen obtained by clean catch procedure / Unknown Non-blood Collection / Unknown 08/14/2024 11:10 AM EST 08/14/2024 11:10 AM EST us Nomi Jarihi PHARMACOMETRICIAN LAB URINE ORDERABLES Final Res ult [facility] [address] [place] [address], * CBC auto differential (08/14/2024 11:10 AM EST) WBC 6.0 4.8 - 10.8 K/mcL LAB HEMETOLOGY METHOD 08/14/2024 2:23 PM EST [facility] RBC 3.80 3.80 - 4.80 M/mcL LAB HEMETOLOGY METHOD 08/14/2024 2:23 PM EST [facility] Hemoglobin 11.7 11.5 - 16.0 g/dL LAB HEMETOLOGY METHOD 08/14/2024 2:23 PM [facility] Hematocrit 36.1 35.0 - 47.0 % LAB HEMETOLOGY METHOD 08/14/2024 2:23 PM EST [facility] MCV 94.5 79.0 - 98.0 FL LAB HEMETOLOGY METHOD 08/14/2024 2:23 PM EST [facility] MCH 30.6 27.0 - 32.0 pcg LAB HEMETOLOGY METHOD 08/14/2024 2:23 PM [facility] MCHC 32.4 32.0 - 37.0 g/dL LAB HEMETOLOGY METHOD 08/14/2024 2:23 PM EST [facility] RDW 12.2 11.0 - 15.0 % LAB HEMETOLOGY METHOD 08/14/2024 2:23 PM [facility] Platelets 246 130 - 400 K/mcL LAB HEMETOLOGY METHOD 08/14/2024 2:23 PM [facility] MPV 10.8 7.0 - 11.0 FL LAB HEMETOLOGY METHOD 08/14/2024 2:23 PM [facility] NRBC 0.0 <1.0 % LAB HEMETOLOGY METHOD 08/14/2024 2:23 PM [facility] NRBC Absolute 0.00 <0.10 K/mcL LAB HEMETOLOGY METHOD 08/14/2024 2:23 PM [facility] Neutrophils Relative 68.4 % LAB HEMETOLOGY METHOD 08/14/2024 2:23 PM [facility] Lymphocytes Relative 21.0 % LAB HEMETOLOGY METHOD 08/14/2024 2:23 PM [facility] Monocytes Relative 9.3 % LAB HEMETOLOGY METHOD 08/14/2024 2:23 PM [facility] Eosinophils Relative 0.7 % LAB HEMETOLOGY METHOD 08/14/2024 2:23 PM [facility] Basophils Relative 0.3 % LAB HEMETOLOGY METHOD 08/14/2024 2:23 PM [facility] Immature Granulocytes Relative 0.3 % LAB HEMETOLOGY METHOD 08/14/2024 2:23 PM [facility] Neutrophils Absolute 4.10 1.50 - 7.00 K/mcL LAB HEMETOLOGY METHOD 08/14/2024 2:23 PM [facility] Lymphocytes Absolute 1.26 1.00 - 5.00 K/mcL LAB HEMETOLOGY METHOD 08/14/2024 2:23 PM [facility] Monocytes Absolute 0.56 0.20 - 1.00 K/mcL LAB HEMETOLOGY METHOD 08/14/2024 2:23 PM [facility] Eosinophils Absolute 0.04 0.00 - 0.50 K/mcL LAB HEMETOLOGY METHOD 08/14/2024 2:23 PM [facility] Basophils Absolute 0.02 0.00 - 0.20 K/mcL LAB HEMETOLOGY METHOD 08/14/2024 2:23 PM [facility] Immature Granulocytes Absolute 0.02 0.00 - 0.03 K/[facility] LAB HEMETOLOGY METHOD 08/14/2024 2:23 PM EST [facility] Blood Venous blood specimen / Unknown Venipuncture / Unknown 08/14/2024 11:10 AM EST 08/14/2024 11:10 AM EST Nomi Land PHARMACOMETRICIAN LAB BLOOD ORDERABLES Final Res ult Performing Organization Address City/[facility]/ZIP Co de Phone Number [facility] [address] [place] [address], [place] [phone] * Hemoglobin A1c (08/14/2024 11:10 AM EST) Pathologist [facility] Hemoglobin A1C 5.5 <6.5 % LAB CHEMISTRY METHOD 08/14/2024 8:30 PM EST [facility] Mean Bld Glu Estim. 111 mg/dL LAB CHEMISTRY METHOD 08/14/2024 8:30 PM EST [facility] Blood Venous blood specimen / Unknown Venipuncture / Unknown 08/14/2024 11:10 AM EST 08/14/2024 11:10 AM EST Nomi Land NP LAB BLOOD ORDERABLES Final Res ult Performing Organization Address [facility]/ZIP Co de Phone Number [facility] [address] [place] [address], [place] [phone] * (ABNORMAL) Comprehensive metabolic panel (08/14/2024 11:10 AM EST) Sodium 138 133 - 145 mmol/L LAB CHEMISTRY METHOD 08/14/2024 3:02 PM EST [facility] Potassium 4.0 3.5 - 5.5 mmol/L LAB CHEMISTRY METHOD 08/14/2024 3:02 PM EST [facility] Chloride 103 96 - 110 mmol/L LAB CHEMISTRY METHOD 08/14/2024 3:02 PM EST [facility] CO2 27 21 - 32 mmol/L LAB CHEMISTRY METHOD 08/14/2024 3:02 PM [facility] Anion Gap 8 3 - 11 LAB CHEMISTRY METHOD 08/14/2024 3:02 PM [facility] Glucose 110(H) 70 - 100 mg/dL LAB CHEMISTRY METHOD 08/14/2024 3:02 PM [facility] BUN 11 5 - 25 mg/dL LAB CHEMISTRY METHOD 08/14/2024 3:02 PM [facility] Creatinine 0.57 0.50 - 1.10 mg/dL LAB CHEMISTRY METHOD 08/14/2024 3:02 PM [facility] eGFR 122 >=60 mL/min/1. 73m2 LAB CHEMISTRY METHOD 08/14/2024 3:02 PM [facility] Comment:Calculation based on the??Chronic Kidney Disease Epidemiology Collaboration (CKD-EPI) equation refit??without adjustment for race. BUN/Creatinine Ratio 19.3 LAB CHEMISTRY METHOD 08/14/2024 3:02 PM [facility] Calcium 9.7 8.5 - 10.5 mg/dL LAB CHEMISTRY METHOD 08/14/2024 3:02 PM [facility] AST (SGOT) 13 10 - 42 unit/L LAB CHEMISTRY METHOD 08/14/2024 3:02 PM [facility] ALT (SGPT) 19 10 - 60 unit/L LAB CHEMISTRY METHOD 08/14/2024 3:02 PM [facility] Alkaline Phosphatase 43 42 - 121 unit/L LAB CHEMISTRY METHOD 08/14/2024 3:02 PM [facility] Total Protein 7.3 6.0 - 8.0 g/dL LAB CHEMISTRY METHOD 08/14/2024 3:02 PM [facility] Albumin 4.2 3.2 - 5.0 g/dL LAB CHEMISTRY METHOD 08/14/2024 3:02 PM [facility] Total Bilirubin 0.3 0.0 - 1.4 mg/dL LAB CHEMISTRY METHOD 08/14/2024 3:02 PM EST [facility] Blood Venous blood specimen / Unknown Venipuncture / Unknown 08/14/2024 11:10 AM EST 08/14/2024 11:10 AM EST Nomi Land NP LAB BLOOD ORDERABLES Final Res ult [facility] [address] [place] [address], [place] [phone] * Cervical Cancer Screening: HPV (04/01/2024) Pathologist [facility] Cervical Cancer Screening: HPV abstracted, negative Historical Provider HEALTH MAINTENANCE Final Result * HIV Screening (04/01/2024) [facility] HIV Screening abstracted Historical Provider MD HEALTH MAINTENANCE Final Result * Hepatitis C Screening (04/01/2024) Pathologist [facility] Hepatitis C Screening abstracted Historical Provider MD HEALTH MAINTENANCE Final Result * Lipid panel (02/07/2024) [facility] LDL/HDL Ratio 2 0 - 4 Triglycerides 112 0 - 150 mg/dL Cholesterol 191 0 - 200 mg/dL HDL 84 >=40 mg/dL LDL Cholesterol 85 0 - 100 mg/dL Blood Venous blood specimen / Unknown Historical Provider LAB BLOOD ORDERABLES Linda l Result from Last 3 Months or Most Recently Relevant to Health Maintenance Insurance [facility] [place] [address] Care Teams Clam Bed Worker Relationship Specialty Start Date End Date Mariaelena Bee DO [address] [place] [address] PCP - General 06/27/24
--- OUTSIDE RECORDS SUMMARY | 2024-11-07 19:12 | XMS_ITS | Encounter Summary ---
Author Organization [facility] [place] [address] Care Team Providers Care Direct Sales Professional Name Role Phone Mariaelena Bee DO Primary Care Provider [phone] Reason for Visit * Reason Onset Date Comments pt 1 11/07/2024 Encounter Details Date Type Department Care Team (Late st Contact Info) Description 11/07/2024 Telephone Internal Medicine [facility] [address] [address] Mariaelena Bee DO [address] [place], [place] [phone] pt 1 Social History Tobacco Use Types [...] Progress Notes * Flora Wiggins - 11/07/2024 2:22 PM EDT PT-1 Request Call Cristiana[employer] new provider or submitter number is [id number] Verify and document patients [place] Health insurance ID # (NOT [facility] ID): [id number] Payor: [employer] PLAN / Plan: [employer] MEDICAID / Product Type: *No Product type* / Patient mailing address: [address] [facility] [address] (home) Pt. demographics verified? yes If not accurate, update registration. Is this a NEW request or a RENEWAL? New request Name of treating facility: [facility] Name (first & last) of treating provider? required : What is the medical reason why the patient is seeing the above provider? Dental issues Address/Zip code for treating provider: [address] [place] [address] Phone # for treating provider: [phone] Is the provider in the [facility] [employer] network (do they accept [place] Health insurance)? yes What specialtly is this provider? dentistry When is the visit scheduled for? 11-13-24 How often you will be seeing this [...] on filedocumented in this encounter Care Teams Direct Sales Professional Relationship Specialty Start Date End Date Mariaelena Bee DO [address] [place] [address] PCP - General 06/27/24 documented as of this encounter
--- OUTSIDE RECORDS SUMMARY | 2024-11-07 19:12 | XMS_ITS | Encounter Summary ---
Author Organization [facility] Address [address] [place] [address] Care Team Providers Care Um Rn Name Role Phone Mariaelena Bee DO Primary Care Provider [phone] Encounter Details Date Type Department Care Team (Late st Contact Info) Description 11/07/2024 Telephone Internal Medicine - [place] [address] [place] [address] Mariaelena Bee DO [address] [place] [address] Social History Tobacco Use Types Packs/Day Years [...] on filedocumented in this encounter Care Teams Um Rn Relationship Specialty Start Date End Date Mariaelena Bee DO [address] [place] [address] PCP - General 06/27/24 documented as of this encounter
--- OUTSIDE RECORDS SUMMARY | 2024-11-07 19:12 | XMS_ITS | Encounter Summary ---
Author Organization [facility] [place] [address] Care Team Providers Care Janitorial Account Manager Name Role Phone Mariaelena Bee DO Primary Care Provider [phone] Reason for Visit * Reason Onset Date Comments pt 1 11/07/2024 Encounter Details Date Type Department Care Team (Late st Contact Info) Description 11/07/2024 Telephone Internal Medicine [facility] [place] [address] [facility] [place] [address] Mariaelena Bee DO [address] [place], [place] [phone] pt 1 Social History Tobacco Use Types [...] Progress Notes * Flora Wiggins - 11/07/2024 3:00 PM EDT PT-1 Request Call Cristiana/[employer] new provider or submitter number is [id number] Verify and document patients [place] Health insurance ID # (NOT [facility] ID): [id number] Payor: [employer] PLAN / Plan: [employer] MEDICAID / Product Type: *No Product type* / Patient mailing address: [address] [place] [id number] (home) Pt. demographics verified? yes If not accurate, update registration. Is this a NEW request or a RENEWAL? New request Name of treating facility: [facility] Name (first & last) of treating provider? required : von can What is the medical reason why the patient is seeing the above provider? [facility] Address/Zip code for treating provider: [place] [address] Phone # for treating provider: [phone] Is the provider in the [facility] (do they accept [place] Health insurance)? yes What specialtly is this provider? Optometry When is the visit scheduled for? 12-04-24 How often you will be seeing this [...] on filedocumented in this encounter Care Teams Janitorial Account Manager Relationship Specialty Start Date End Date Mariaelena Bee DO [address] [place] [address] PCP - General 06/27/24 documented as of this encounter
[2024-11-08 12:30] LABS: Complement C3 137 mg/dL (83-193)
[2024-11-08 17:14] LABS: Anti DNA DS Antibody 1 IU/mL
== END 2024-11-07 15:48 | disposition home or self-care (01) ==
LOC: HO.HKASLDS 15:47
PROVIDERS: Visit Provider Internal Medicine Rheumatology
DX: M32.9 Systemic lupus erythematosus, unspecified (principal); Z79.899 Other long term (current) drug therapy; Z79.60 Long term (current) use of unspecified immunomodulators and immunosuppressants
CPT/HCPCS: 36415; 82565; 84450; 84460; 85025; 85652; 86140; 86160; 86225

== ENCOUNTER 2025-02-06 12:26 | Outpatient (AMB) | payer OTHER, SELFPAY ==
[2025-02-06 12:32] VITALS: BP 100/74; PULSE 110; O2SAT 97; BMI 20.6
--- NOTE | 2025-02-06 12:32 | A.OFFVIS_ITS ---
Vital Signs 02/06/25 12:32 Height 4 ft 11 in Weight 102 lb BMI 20.6 BP 100/74 Blood Pressure Location Lt brachial Position Sitting Pulse 110 H Pulse Oximetry (%) 97 Oxygen Delivery Method Room Air Intake Visit Reasons: 3 Months Intake Note: Patient presents for follow up on polyarthritis. Allergies No Known Allergies Allergy (Verified 02/06/25 12:32) HPI HPI 3 Months: Details: She has been experiencing neck pain for a few months. She is applying heat without benefit. She has tried to change pillows. She continues to have joint pain mainly in her hands and neck. Her left shoulder is hurting. She feels weak. Denies fevers. She has intermittent dyspnea. She is currently being worked up by roads supervisor for tachycardia. She will be returning to roads supervisor's for 48 hour Holter monitor. 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 At that time she was requested to go to the ER but patient refused. Chest discomfort is intermittent. Denies urinary symptoms. No new joint swelling. [facility] Medical History Endometriosis determined by laparoscopy Endometriosis Polyarthritis Family History Mother Diabetes Father Multiple sclerosis Social History Alcohol intake: current Comment: socially Patient Tobacco Use Status: Never used Tobacco Physical Exam Vital Signs: Last Vital Signs Pulse 110 H 02/06/25 12:32 BP 100/74 02/06/25 12:32 Pulse Ox 97 02/06/25 12:32 Oxygen Delivery Method Room Air 02/06/25 12:32 BMI result Body Mass Index 20.6 Const Other: General: Comfortable CVS: RRR Respiratory: clear to auscultation bilaterally. Good respiratory effort Skin: No lesions seen MSK: Tenderness of bilateral MCPs and PIP in hands. Synovitis of left 3rd PIP. Normal range of motion of upper extremities. Tender bilateral knees. Increased laxity of bilateral patella. Normal range of motion of lower extremities. Tender to palpate left trapezius. No spinous process tenderness. Normal cervical range of motion. Assessment & Plan Assessment & Plan (1) Systemic lupus erythematosus: Comment: She continues to have inflammatory arthritis mainly affecting her hands. Hydroxychloroquine may be contributing to chronic gassiness and abdominal discomfort. I will change hydroxychloroquine to brand Plaquenil. 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 Positive GERALDINE 1:640, double-stranded DNA, SSA antibody, low C4, elevated ESR, hair loss, inflammatory arthritis, brain fog, livedo reticularis on back. Hydroxychloroquine started 11/14/2021. Methotrexate 03/16/2022 to 07/17/2022 discontinued due to GI upset. IV Benlysta started 05/17/2022 and changed to subcutaneous injection 06/16/2023 for convenience. Code(s): M32.9 - Systemic lupus erythematosus, unspecified Category: Medical Qualifiers: Systemic lupus erythematosus type: other Systemic lupus erythematosus organ involvement: unspecified Qualified Code(s): M32.8 - Other forms of systemic lupus erythematosus Plan: Switch hydroxychloroquine 200 mg 2 Plaquenil 200 mg daily. Last VF 07/2024. Continue Benlysta 200 mg subcutaneous injection weekly Labs for disease and drug monitoring on high-risk medication ordered. I will defer prescribing prednisone at this time to help control inflammatory arthritis as her symptoms are tolerable. She is also currently undergoing cardiac workup for tachycardia. Prednisone has a rare risk of causing arrhythmia. If her symptoms progress, I will consider course of prednisone. Take naproxen 500 mg b.i.d. prn joint pain prescribed by PCP Housing form and loan form completed for patient Requesting neuropsychiatric evaluation from [facility] 3rd request Return to clinic in 3 months (2) Lower extremity weakness: Code(s): R29.898 - Other symptoms and signs involving the musculoskeletal system Category: Medical Qualifiers: Laterality: bilateral Qualified Code(s): R29.898 - Other symptoms and signs involving the musculoskeletal system Plan: PT ordered for strengthening CK, aldolase, electrolytes and inflammatory markers ordered (3) Strain of left trapezius muscle: Code(s): S46.812A - Strain of other muscles, fascia and tendons at shoulder and upper arm level, left arm, initial encounter Category: Medical Qualifiers: Encounter type: initial encounter Qualified Code(s): S46.812A - Strain of other muscles, fascia and tendons at shoulder and upper arm level, left arm, initial encounter Plan: PT ordered (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 Code(s): M22.41 - Chondromalacia patellae, right knee; M22.42 - Chondromalacia patellae, left knee Category: Medical Plan: PT ordered (5) Other tank terminal gauger (current) 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 therapy: Code(s): Z79.899 - Other retirement (current) drug therapy Category: Medical Plan: See above (6) Sjogren syndrome: Comment: Sicca symptoms are controlled Code(s): M35.00 - Sjogren syndrome, unspecified Category: Medical Qualifiers: Sjogren organ or system involvement: without extraglandular involvement Qualified Code(s): M35.00 - Sjogren syndrome, unspecified Plan: Monitor clinically Orders: Orders Complete Blood Count Man Dif 02/06/25 M32.9 - Systemic lupus erythematosus, unspecified Alanine Aminotransferase 02/06/25 M32.9 - Systemic lupus erythematosus, unspecified Creatinine 02/06/25 M32.9 - Systemic lupus erythematosus, unspecified C Reactive Protein 02/06/25 M32.9 - Systemic lupus erythematosus, unspecified Aldolase Today R29.898 - Other symptoms and signs involving the musculoskeletal system Aspartate Amino Transferase 02/06/25 M32.9 - Systemic lupus erythematosus, unspecified Erythrocyte Sedimentation Rate 02/06/25 M32.9 - Systemic lupus erythematosus, unspecified UA w Microscopic 02/06/25 M32.9 - Systemic lupus erythematosus, unspecified Anti DNA DS Antibody 02/06/25 M32.9 - Systemic lupus erythematosus, unspecified Complement C4 02/06/25 M32.9 - Systemic lupus erythematosus, unspecified Complement C3 02/06/25 M32.9 - Systemic lupus erythematosus, unspecified Creatine Kinase Total Today R29.898 - Other symptoms and signs involving the musculoskeletal system Sm Sm/CHEMICAL PROCESSOR Antibodies Today M32.9 - Systemic lupus erythematosus, unspecified Magnesium Today R29.898 - Other symptoms and signs involving the musculoskeletal system Calcium Today R29.898 - Other symptoms and signs involving the musculoskeletal system Vitamin D 25-OH Total Today R29.898 - Other symptoms and signs involving the musculoskeletal system Potassium Today R29.898 - Other symptoms and signs involving the musculoskeletal system Medications: New diclofenac sodium 1% apply to single elbow, wrist or hand; for hand includes palm/fingers/back of hand 2 grams topical QID 100 grams 5RF Changed From hydroxychloroquine 200 mg PO DAILY To hydroxychloroquine Replace previous rx 200 mg PO DAILY 90 days 90 tabs 0RF From Plaquenil (hydroxychloroquine) Please process PA for brand only. 200 mg PO DAILY 30 tabs 5RF NS To Plaquenil (hydroxychloroquine) Dispense brand only 200 mg PO DAILY 90 tabs 1RF NS Discontinued hydroxychloroquine Discontinued Reason: Doctor's Order 200 mg PO DAILY 90 tabs 1RF Coding Level of Care Code Est Pt Level 5 (60482) Complex EM visit Add On G2211 Diagnoses Other forms of systemic lupus erythematosus, unspecified organ involvement status M32.8 Systemic lupus erythematosus type: other Systemic lupus erythematosus organ involvement: unspecified Weakness of both lower extremities R29.898 Laterality: bilateral Strain of left trapezius muscle, initial encounter S46.812A Encounter type: initial encounter Chondromalacia of both patellae M22.41; M22.42 Other tank terminal gauger (current) drug therapy Z79.899 Sjogren's syndrome without extraglandular involvement M35.00 Sjogren organ or system involvement: without extraglandular involvement Time Spent (min) 40
--- OUTSIDE RECORDS SUMMARY | 2025-02-06 14:23 | XMS_ITS | Encounter Summary ---
Author Organization [facility] Address [address] [place] [address] Care Team Providers Care Regional Medical Director Name Role Phone Mariaelena Bee Primary Care Provider [phone] Reason for Visit * Reason Onset Date Comments Return Late Monitor 02/05/2025 Encounter Details Date Type Department Care Team (Late st Contact Info) Description 02/05/2025 Telephone Pediatrics - [address] [place] [address] Popeye Morris MD [address] [place] [address] Return Late Monitor Social History Tobacco Use Types Packs/Day Years [...] as of this encounter Progress Notes * Carmen Damian - 02/06/2025 10:48 AM EDT Thanks Erma, I called and spoke with patient, rescheduled Echo for tomorrow (02/06/25) at 2:30pm. Pt has Physicaltherapy but was going to reschedule to get Echo done. She will return monitor tomorrow. * Erma Marques MA - 02/06/2025 9:10 AM EDT I spoke with the patient who has another appointment this afternoon and will drop off the monitor. I informed the patient of late charge and replacement cost of Holter monitor if not returned. Patient assured me she would drop it off this afternoon. Please call patient to move up Echo appointment as stated below. Patient is awaiting your call. Thank you. * Carmen Damian - 02/05/2025 2:58 PM EDT Patient left message in testing voice mail today, to inform she has been unable to return 48hr holter monitor, done on 01/31/25 due to transport. We have also tried to reach patient unsuccessfully, to move up Echo appt due to worsening symptoms. Please call pt when available, to inform about holter return policy. Thanks. documented in this encounter Plan of Treatment Upcoming Encounters Date Type Department Care Team (Late st Contact Info) Description 02/07/2025 2:30 PM EDT Ancillary Procedure [facility] - [address] [place] [address] 02/11/2025 11:00 AM EDT Clinical Support Obstetrics and Gynecology - [address] [address] [place] [address] 07/11/2025 2:30 PM EST Office Visit Internal Medicine - [facility] [address] [place] [address] Mariaelena Bee DO [address] [place] [address] documented as of this encounter Visit Diagnoses Not on filedocumented in this encounter Care Teams Regional Medical Director Relationship Specialty Start Date End Date Mariaelena Bee DO [address] [place] [address] PCP - General 06/27/24 documented as of this encounter
== END 2025-02-06 13:30 | disposition home or self-care (01) ==
LOC: HO.RHES 12:27
PROVIDERS: PCP Internal Medicine Rheumatology; Visit Provider Internal Medicine Rheumatology
DX: M32.8 Other forms of systemic lupus erythematosus (principal); R29.898 Other symptoms and signs involving the musculoskeletal system; S46.812A Strain of other muscles, fascia and tendons at shoulder and upper arm level, left arm, initial encounter; M22.41 Chondromalacia patellae, right knee; M22.42 Chondromalacia patellae, left knee; Z79.899 Other long term (current) drug therapy; M35.00 Sjogren syndrome, unspecified
CPT/HCPCS: 99215

== ENCOUNTER → 2025-02-06 12:26 | Outpatient (BNVA) | payer OTHER, SELFPAY | PROVIDERS: PCP Internal Medicine Rheumatology; Visit Provider Internal Medicine Rheumatology | DX: M32.8 Other forms of systemic lupus erythematosus (principal); R29.898 Other symptoms and signs involving the musculoskeletal system; S46.812A Strain of other muscles, fascia and tendons at shoulder and upper arm level, left arm, initial encounter; M22.41 Chondromalacia patellae, right knee; M22.42 Chondromalacia patellae, left knee; M35.00 Sjogren syndrome, unspecified; Z79.899 Other long term (current) drug therapy | CPT/HCPCS: 99212 ==

== ENCOUNTER 2025-04-11 11:59 | Outpatient (REF) | payer OTHER, SELFPAY ==
--- OUTSIDE RECORDS SUMMARY | 2025-04-11 12:02 | XMS_ITS | Encounter Summary ---
Author Organization [facility] Address [address] [place] [address] Care Team Providers Care Sales Account Director Name Role Phone Mariaelena Bee DO Primary Care Provider Reason for Visit * Reason Onset Date Comments Referral 12/31/2024 Encounter Details Date Type Department Care Team (Late st Contact Info) Description 12/31/2024 Telephone Internal Medicine - [facility] [address] [place] [address] Mariaelena Bee DO [address] [place] [address] Referral Social History Tobacco Use Types Packs/Day [...] as of this encounter Progress Notes * Dipti Cedillo MA - 12/31/2024 2:05 PM EDT Needs appt. * Cheryl Wheeler - 12/31/2024 1:59 PM EDT Referral Request: What insurance does the patient have today? whp Referrals cannot be processed if the insurance is not accurate. If the insurance listed above in red is NO BILLING INFORMATION FOUND FOR THIS ENCOUTNER The patients correct insurance must be obtained and registered in [facility] or their referral can not be processed. Who is calling to request this referral? pt If the caller is not the patient, what is their name? not applicable Ask the patient WHO referred them to this specialty: Patient self referred FIRST and LAST NAME of SPECIALIST PATIENT is seeing: unsure What specialty is this? Cardiology DIAGNOSIS Patient is being seen for (Not a body part or a procedure): chest pain Have you seen this SPECIALIST for this PROBLEM/DX before? If YES, when? No Have you checked REVIEW or the APPT DESK to see if this referral has already been done or has visits left? yes Is this visit: Initial Visit Address of Specialist: [employer] Phone # of Specialist: [phone] Fax #: (if applicable): [phone] Does patient have an appointment scheduled?: no Date of appointment- (including a retro-request): n/a Is this appointment related to: n/a documented in this encounter Plan of Treatment Upcoming Encounters Date Type Department Care Team (Late st Contact Info) Description 07/11/2025 2:30 PM EST Office Visit Internal Medicine - [facility] [place] [place], [place] [phone] Mariaelena eBe DO [address] [place] [address] documented as of this encounter Visit Diagnoses Not on filedocumented in this encounter Care Teams Sales Account Director Relationship Specialty Start Date End Date Mariaelena Bee DO [address] [place] [address] PCP - General 06/27/24 documented as of this encounter
[2025-04-11 13:41] LABS: Baso%MD 0.2 %; Eos%MD 0.5 %; Hematocrit 37.8 % (37.0-47.0); Hemoglobin 12.8 g/dl (12.0-16.0); IG%MD 0.2 %; Lymph%MD 20.6 %; Mean Corpuscular HGB Conc 33.9 g/dl (31.0-35.0); Mean Corpuscular Hemoglobin 30.8 pg (27.0-33.0); Mean Corpuscular Volume 91.1 fL (80.0-98.0); Mono%MD 7.6 %; NRBC Abs Auto 0.050 X10*3/uL (0.0-0.012); NRBC Pct Auto 0.9 /100WBC (0.0-0.2); Neut%MD 70.9 %; Platelet Count 232 X10*3/uL (160-400); Red Blood Count 4.15 X10*6/uL (4.20-5.50); White Blood Count 5.8 X10*3/uL (4.8-10.8)
[2025-04-11 13:53] LABS: Appearance Urine Turbid; Glucose Urine UA Negative (Negative); PH 8.0 (5.0-9.0); Specific Gravity - Urine 1.020 (1.005-1.025)
[2025-04-11 14:30] LABS: Alanine Aminotransferase 15 U/L (0-31); Aspartate Amino Transferase 18 U/L (5-31); Calcium 9.8 mg/dL (8.4-10.2); Estimated Glomerular Filt Rate > 60; Magnesium 2.1 mg/dL (1.6-2.6); Potassium 3.4 mmol/L (3.3-5.1)
[2025-04-11 14:31] LABS: Basophils Abs Manual 0.1 X10*3/uL (0.0-0.2); Basophils Percent Manual 1 % (0-2); Eosinophils Absolute Manual 0.1 X10*3/uL (0.0-0.4); Eosinophils Percent Manual 1 % (0-4); Lymphocytes Absolute Manual 0.9 X10*3/uL (1.2-4.9); Lymphocytes Percent Manual 16 % (20-40); Monocytes Absolute Manual 0.2 X10*3/uL (0.1-1.2); Monocytes Percent Manual 3 % (2-11); Neutrophils Percent Manual 79 % (45-73)
[2025-04-11 14:34] LABS: Band Neutrophils Percent 0 % (3-5); Burr Cells 1+ (0-2) /OIF; Neutrophils Absolute Manual 4.6 X10*3/uL (2.0-8.3); Ovalocytes 1+ (5-14) /OIF; RBC Morphology NOTED; Tear Drop Cells 1+ (0-2) /OIF
[2025-04-11 14:54] LABS: Total Protein Urine Random < 7 mg/dL (<12)
[2025-04-12 08:21] LABS: HBS Num1 51.54 mIU/mL (0-7.99); HBc Num1 0.04 S/CO (0.00-0.79); HBsAGNum1 0.36 S/CO (0.00-0.99); Hepatitis B Surface Antigen Negative (Negative); ~HepC Num1 0.11 S/CO (0.00-0.79); ~Hepatitis B Surface Antibody REACTIVE (Nonreactive); ~Hepatitis C Antibody Nonreactive (Nonreactive)
[2025-04-14 13:38] LABS: TS Negative Control Passed; TS Panel A 0; TS Panel B 1; TS Positive Control Passed; TSpotTB Negative (Negative)
[2025-04-14 21:03] LABS: SM/Ribonucleoprotein Ab <1.0 NEG AI (<1.0 NEG); Smith Protein <1.0 NEG AI (<1.0 NEG)
== END 2025-04-11 12:00 | disposition home or self-care (01) ==
LOC: HO.LAB 11:59
PROVIDERS: Visit Provider Internal Medicine Rheumatology
DX: Z11.59 Encounter for screening for other viral diseases (principal); Z11.1 Encounter for screening for respiratory tuberculosis; R35.0 Frequency of micturition; R29.898 Other symptoms and signs involving the musculoskeletal system; M32.8 Other forms of systemic lupus erythematosus; Z79.899 Other long term (current) drug therapy
CPT/HCPCS: 36415; 81001; 82085; 82306; 82310; 82550; 82565; 82570; 83735; 84132; 84156; 84450; 84460; 85007; 85027; 85652; 86140; 86160; 86225; 86235; 86481; 86704; 86706; 86803; 87086; 87340

== ENCOUNTER 2025-05-15 12:45 | Outpatient (AMB) | payer OTHER, SELFPAY ==
[2025-05-15 12:52] VITALS: BP 110/80; PULSE 117; O2SAT 98; BMI 21.3
--- NOTE | 2025-05-15 12:52 | MHC.OFFVIS ---
Vital Signs 05/15/25 12:52 Height 4 ft 11 in Weight 105 lb 6.095 oz BMI 21.3 BP 110/80 Blood Pressure Location Lt brachial Position Sitting Pulse 117 H Pulse Source Pulse Oximeter Pulse Oximetry (%) 98 Oxygen Delivery Method Room Air Intake Visit Reasons: 3 Months Intake Note: Patient presents for follow up on polyarthritis. Accompanied by: Self / Same As Patient Allergies No Known Allergies Allergy (Verified 02/06/25 12:32) Medication List - Last Reconciled 05/15/25 by Joe Sandoval MD acetaminophen ER (Tylenol Arthritis Pain) 1,300 mg (2 x 650 mg) PO Q8H 90 days acetaminophen ER 1,300 mg (2 x 650 mg) PO Q8H alprazolam 1 mg PO TID PRN belimumab (Benlysta) 200 mg subcut QWEEK cholecalciferol (vitamin D3) (Vitamin D3) 50 mcg PO DAILY dextroamphetamine-amphetamine 30 mg (Adderall) 30 mg PO DAILY diclofenac sodium 1% 2 grams topical QID fexofenadine 60 mg PO BID fluoride (sodium) 1.1% (Denta 5000 Plus) 1 appl PO DAILY fluticasone propionate 50 mcg/actuation 1 spray intranasal BID hydroxychloroquine 200 mg PO DAILY 90 days minoxidil 2.5 mg PO DAILY naproxen 500 mg PO BID Plaquenil (hydroxychloroquine) 200 mg PO DAILY NS polyvinyl alcohol 1.4% drps ophthalmic (eye) DAILY PRN zolpidem 10 mg PO BEDTIME PRN HPI HPI 3 Months: Details: Plaquenil caused bloating, nausea and she could not tolerate it. Hard to cut and stir with using hands. 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 She is experiencing most pain in her feet. MS 1-2 hours. Hard to get up and move due to foot pain. Community Development Officer prescribed meloxicam 7.5mg daily. Naproxen caused GI upset. She is seeing needleworker for left trapezius strain. She is considering getting trigger point injections. Community Development Officer ordered an MRI of her C-spine for concern of nerve impingement contributing to her symptoms. [facility] Medical History Endometriosis determined by laparoscopy Endometriosis Polyarthritis Family History Mother Diabetes Father Multiple sclerosis Social History Alcohol intake: current Comment: socially Patient Tobacco Use Status: Never used Tobacco Physical Exam Vital Signs: Last Vital Signs Pulse 117 H 05/15/25 12:52 BP 110/80 05/15/25 12:52 Pulse Ox 98 05/15/25 12:52 Oxygen Delivery Method Room Air 05/15/25 12:52 BMI result Body Mass Index 21.3 Const Other: General: Comfortable CVS: RRR Respiratory: clear to auscultation bilaterally. Good respiratory effort Skin: No lesions seen MSK: Tender to palpate right PIP with synovitis over 2nd PIP. Tender right wrist. Normal range of motion of upper extremities. Normal range of motion of lower extremities. Tender to palpate left trapezius. Synovitis of bilateral MTPs with tenderness on palpation. Assessment & Plan Assessment & Plan (1) Systemic lupus erythematosus: Comment: Inflammatory arthritis is now progressed to involve bilateral MTPs. She did not tolerate brand Plaquenil. We discussed next steps in immunosuppressive management to control inflammatory arthritis. We discussed side effects, benefits and drug monitoring of sulfasalazine. 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 Positive GERALDINE 1:640, double-stranded DNA, SSA antibody, low C4, elevated ESR, hair loss, inflammatory arthritis, brain fog, livedo reticularis on back. Hydroxychloroquine started 11/14/2021-2024. Methotrexate 03/16/2022 to 07/17/2022 discontinued due to GI upset. IV Benlysta started 05/17/2022 and changed to subcutaneous injection 06/16/2023 for convenience. Leflunomide caused reduced appetite. Brand Plaquenil cause bloating and nausea 2023. Code(s): M32.9 - Systemic lupus erythematosus, unspecified Category: Medical Qualifiers: Systemic lupus erythematosus organ involvement: unspecified Systemic lupus erythematosus type: other Qualified Code(s): M32.8 - Other forms of systemic lupus erythematosus Plan: Labs for disease and drug monitoring on high-risk medication UTD 03/2025. Start sulfasalazine 500 mg twice a day. She will then need labs 1 month after starting sulfasalazine with CBC, creatinine, AST, ALT. Prednisone course prescribed. She will call office if patient if symptoms progress or if they return after prednisone course is completed. I will then increase sulfasalazine dose. 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 She had mild elevation in CK level 03/2025. Completed PT but did not feel it was effective. She would like to try PT again at a location closer to home to focus on balance and further improvement in lower extremities strength. Code(s): R29.898 - Other symptoms and signs involving the musculoskeletal system Category: Medical Qualifiers: Laterality: bilateral Qualified Code(s): R29.898 - Other symptoms and signs involving the musculoskeletal system Plan: PT ordered for strengthening and improving balance. 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 Category: Medical Plan: See above (5) Sjogren syndrome: Comment: Sicca symptoms are controlled Code(s): M35.00 - Sjogren syndrome, unspecified Category: Medical Qualifiers: Sjogren organ or system involvement: without extraglandular involvement Qualified Code(s): M35.00 - Sjogren syndrome, unspecified Plan: Monitor clinically Orders: Orders Protein Creatinine Ratio, Ur 05/15/25 M32.9 - Systemic lupus erythematosus, unspecified Alanine Aminotransferase 05/15/25 M32.9 - Systemic lupus erythematosus, unspecified Creatinine 05/15/25 M32.9 - Systemic lupus erythematosus, unspecified Anti DNA DS Antibody 05/15/25 M32.9 - Systemic lupus erythematosus, unspecified C Reactive Protein 05/15/25 M32.9 - Systemic lupus erythematosus, unspecified Complete Blood Count Auto Diff 1 Month Z79.899 - Other assisted (current) drug therapy Alanine Aminotransferase 1 Month Z79.89 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 Aldolase 1 Month R29.898 - Other symptoms and signs involving the musculoskeletal system Complete Blood Count Auto Diff 05/15/25 M32.9 - Systemic lupus erythematosus, unspecified Erythrocyte Sedimentation Rate 05/15/25 M32.9 - Systemic lupus erythematosus, unspecified Complement C3 05/15/25 M32.9 - Systemic lupus erythematosus, unspecified Aspartate Amino Transferase 05/15/25 M32.9 - Systemic lupus erythematosus, unspecified Complement C4 05/15/25 M32.9 - Systemic lupus erythematosus, unspecified UA ClnCatch+Micro w/rflx Cult 05/15/25 M32.9 - Systemic lupus erythematosus, unspecified Creatinine 1 Month Z 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 therapy Creatine Kinase Total 1 Month R29.898 - Other symptoms and signs involving the musculoskeletal system Medications: New prednisone Take 3 tablets daily 5 days, 2 tablets daily 5 days, 1 tablet daily 5 days, then stop. Take prednisone with food. 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 Sjogren's syndrome without extraglandular involvement M35.00 Sjogren organ or system involvement: without extraglandular involvement
--- OUTSIDE RECORDS SUMMARY | 2025-05-15 14:49 | XMS_ITS | Encounter Summary ---
Author Organization [facility] Address [address] [place] [address] Care Team Providers Care Retail Product Advisor Name Role Phone Aleshia Gamez MD Primary Care Provider [phone] Reason for Visit * Reason Onset Date Comments Referral 12/31/2024 Encounter Details Date Type Department Care Team (Late st Contact Info) Description 12/31/2024 Telephone Internal Medicine - [address] [place] [address] Mariaelena Bee, [address] [place] [address] Social History Tobacco Use Types Packs/Day Years [...] What insurance does the patient have today? [facility] Referrals cannot be processed if the insurance is not accurate. If the insurance listed above in red is NO BILLING INFORMATION FOUND FOR THIS ENCOUTNER The patients correct insurance must be obtained and registered in [facility] or their referral can not be [...] this visit: Initial Visit Address of Specialist: [employer] [address] Phone # of Specialist: [phone] Fax #: (if applicable): [phone] Does patient have an appointment scheduled?: no Date of appointment- (including a retro-request): n/a Is this appointment related to: n/a documented in this encounter Plan of Treatment Not on file documented as of this encounter Visit Diagnoses Not on filedocumented in this encounter Care Teams Retail Product Advisor Relationship Specialty Start Date End Date Aleshia Gamez MD [address] [place] [address] PCP - General Internal Medicine 04/21/25 documented as of this encounter
--- OUTSIDE RECORDS SUMMARY | 2025-05-15 14:49 | XMS_ITS | Clinical Summary ---
Author Organization [facility] [address] [facility] Address [address] [place] [address] Phone Care Team Providers Care Conveyor Feeder Offbearer Name Role Phone Aleshia Gamez MD Primary Care Provider [phone] Allergies Active Allergy Reactions Criticality Noted Date [...] OMEGA-3 FATTY ACIDS ORAL Take by mouth. [place]-3 Fatty Acids (FISH OIL) 600 MG Cap 10/01/19 20 Active fluticasone propionate (FLONASE) 50 mcg/actuation nasal [...] mouth every 8 (eight) hours if needed. 09/03/19 25 Active omeprazole (PriLOSEC) [address] capsule TAKE 1 CAPSULE BY MOUTH EVERY DAY IN THE MORNING 90 capsule 1 12/31/19 25 Active fexofenadine (PIPPA) 180 mg tabletIndication s:Ear itch Take 1 tablet (180 mg total) by mouth 1 (one) time each day. 90 tablet 1 01/07/20 25 Active famotidine (PEPCID) 20 mg tablet TAKE 1 TABLET BY MOUTH TWICE A DAY 180 tablet 1 02/04/20 25 Active medroxyPROGESTER one (Depo-Provera) 150 mg/mL injectionIndicat ions:Encounter for surveillance of injectable contraceptive Inject 1 mL (150 mg total) into the shoulder, thigh, or buttocks every 3 (three) months. 1 mL 3 02/05/20 25 Active Ventolin HFA 90 mcg/actuation inhalerIndicatio ns:Mild intermittent reactive airway disease without complication TAKE 2 PUFFS BY MOUTH EVERY 6 HOURS NEEDED FOR WHEEZE 18 each 05/12/20 25 Active naproxen (NAPROSYN) 500 mg tablet TAKE 1 TABLET (500 MG TOTAL) BY MOUTH 2 (TWO) TIMES A DAY WITH MEALS. NEEDED FOR PELVIC PAIN. 180 tablet 1 01/30/20 25 2024 Ventolin HFA 90 mcg/actuation inhalerIndicatio ns:Mild intermittent reactive airway disease without complication INHALE 2 PUFFS BY MOUTH EVERY 6 HOURS NEEDED FOR WHEEZING 18 each 03/13/20 25 2024 Discontinued Active Problems Problem Noted Date Diagnosed Date Secondary Sjogren's syndrome ([facility] V24) 11/08 Systemic lupus erythematosus ([facility] V24, [facility]/ [facility] V28) 10/18/2021 Overview (07/03/2024): [facility] Shoulder pain, bilateral 08/19/2021 Endometriosis 03/02/2020 Migraine with aura and witho ut status migrainosus, not intractable 08/23/2019 Overview (07/03/2024): Dr Ferguson PTSD (post-traumatic stress disorder) 05/07/2019 ADHD 04/25/2019 Overview (07/03/2024): [facility] Allergic rhinitis 04/25/2019 Anxiety 04/25/2019 GERD (gastroesophageal reflux disease) 9 Ovarian cyst 04/25/2019 Encounters Date Type Department Care Team Description 05/09/2025 Telephone [facility] - [facility] [address] [place] [address] Janneth Hoffmann MA 05/08/2025 Telephone [facility] [address] [place] [address] Ena De Luna 05/08/2025 Telephone [facility] [address] [place] [address] Ena De Luna 05/02/2025 Telephone Internal Medicine - [facility] [address] [place] [address] Aleshia Gamez MD 05/02/2025 Telephone Internal Medicine - [facility] [address] [place] [address] Aleshia Gamez MD 04/25/2025 Telephone [facility] - [address] [place] [address] Aleshia Gamez MD 04/14/2025 Telephone Internal Medicine - [facility] [address] [place] [address] Mariaelena Bee DO 03/28/2025 Telephone Internal Medicine - [facility] [address] [place] [address] Mariaelena Bee DO 03/14/2025 10:45 AM EDT Ancillary Procedure [facility] - [address] [place] [address] Palpitation; Other chest pain 03/12/2025 [facility] [address] [place] [phone] Mariaelena Bee DO 03/11/2025 11:30 AM EDT [facility] [address] Rochelle Son NP Palpitations (Primary Dx); Tachycardia; Attention deficit hyperactivity disorder (ADHD), unspecified ADHD type 03/03/2025 2:27 PM EDT - 03/03/2025 11:59 PM EDT [facility] [address] [phone] Encounter for screening mammogram for malignant neoplasm of breast Discharge Disposition: Home or Self Care 02/12/2025 [facility] [address] [place] [phone] Mariaelena Bee DO 02/12/2025 Telephone [facility] [address] [place] [phone] Popeye Morris MD 02/12/2025 Telephone [facility] [address] [place] [address] Mariaelena Bee DO 02/12/2025 Telephone [facility] [address] Mariaelena Bee DO from Last 3 Months Immunizations Name Administration Dates Next Due HPV 9-valent (Gardisil) 9yo to less than 46yo 11/03/2015 HPV, Quadrivalent 08/28/2015,11/14/2007,06/05/20 07 Hepatitis B (Kqymvde-E-Iamjd , Recombivax HB-Adult) 19yo and older 09/13/2016,06/09/2010,06/27/2001,02/16,01/11/2001 [...] drink = 0.6 oz pur e alcohol) Housing Instability Answer Date Recorde d Are you worried that in the next 2 months you may not have stable housing? No 05/08/2025 Food Access & Nutrition Answer Date Rec orded Do you have access to a vari ety of food including fruits and vegetables? No 05/08/2025 Access to Healthcare Answer Date Record ed Within the last 3 months, ho w many times did you visit the emergency department for your medical care? 1 05/08/2025 Health Literacy Answer Date Recorded How often do you need to hav e someone help you when you read instructions, pamphlets, or other written material from your doctor or pharmacy? Sometimes 05/08/2025 Caregiver: How often do you need to have someone help you when you read instructions, pamphlets, or other written material from your doctor or pharmacy? Not on file 05/08/2025 Financial Risk Answer Date Recorded How hard is it for you to pa y for the very basics like food, housing, medical care, and air conditioning / heating? Very hard 05/08/2025 Transportation Answer Date Recorded Has the lack of transportati on kept you from meetings, work, or from getting things needed for daily living? Yes Has the lack of transportati on kept you from medical appointments or from getting medications? Yes 05/08/2025 Social Isolation Answer Date Recorded How often do you feel lonely or isolated from those around you? Sometimes 05/08/2025 Food Risk Answer Date Recorded Within the past 12 months we worried whether our food would run out before we got money to buy more. Often true 05/08/2025 Within the past 12 months th e food we bought just didn't last and we didn't have money to get more. Often true 05/08/2025 Dependent Care Answer Date Recorded Do you need help finding or paying for care for your loved ones. For example, housekeeper child care or elderly care for an older adult? No 05/08/2025 Education Answer Date Recorded Do you think completing more education or training, like finishing a GED, going to college, or learning a trade, would be helpful for you? No 05/08/2025 Employment and Income Answer Date Recor ded During the last four weeks, have you been actively looking for work? No 05/08/2025 Living Situation Answer Date Recorded What is your living situation? 0 05/08/2025 Comments No Sex and Gender Information Value Date Recorded Sex Assigned at Not on file Legal Sex Female 8:28 AM EST Gender Identity Not on file Sexual Orientation Not on file Obstetrics History * This document contains information received from the source organization and may not represent a complete record from that organization. Para Term AB IAB SAB Ectopic Multiple Livin g Live Births 1 Date Outcome GA Total Labor Labor/2nd/3rd Weight Sex Type Anes PTL Tiana A1 A5 Name Clin Last Filed Vital Signs Vital Sign Reading Time Taken Comments Blood Pressure 115/81 03/14/2025 11:04 AM EDT Pulse 70 03/11/2025 11:44 AM EDT Temperature 36.7 C (98.1 F) 07/05/2024 6:05 AM EST Respiratory Rate 18 02/04/2025 1:48 PM EDT Oxygen Saturation 96% 09/03/2024 2:07 PM EST Inhaled Oxygen Concentration - - Weight 46.3 kg (102 lb) 03/14/2025 11:04 AM EDT Height 149.9 cm (4' 11 ) 03/14/2025 11:04 AM EDT Body Mass Index 20.6 03/14/2025 11:04 AM EDT Plan of Treatment Health Maintenance Due Date Last Done Comments COVID-19 Vaccine (#1) 1995 Pneumococcal Vaccine: Pediatrics (0 to 5 Years) and At-Risk Patients (6 to 49 Years) (1 of 2 - PCV) 2009 Depression Screening 08/28/2024 Influenza Vaccine (#1) 2025 08/19/2008 Social Influencers of Health Screening 05/08/2026 05/08/2025 Cholesterol Screening (Lipid Panel) 02/06/2029 02/07/2024, 02/07/2024 Cervical Cancer Screening: HPV 04/01/2029 04/01/2024 DTaP,Tdap,and Td Vaccines (3 - Td or Tdap) 12/03/2031 12/02/2021, 06/13/2007, 06/05/2007 RSV Immunization Adult Patients (1 - 1-dose 75+ series) 2065 Meningococcal ACWY Vaccine Completed 06/05/2007 HPV Vaccines [...] age to complete this topic Meningococcal B Vaccine Aged Out No l onger eligible based on patient's age to complete this topic RSV Immunization Patients Under 20 months Aged Out No longer eligible based on patient's age to complete this topic Varicella Vaccines Aged Out No longer eligible based on patient's age to complete this topic Procedures Procedure Name Priority Date/Time Associated Diagnosis Comments STRESS TEST ONLY EXERCISE Routine 03/14/2025 11:44 AM EDT Palpitation Other chest pain MG MAMMO DIGITAL SCREENING W ANDRES BILAT Routine 03/03/2025 2:45 PM EDT Encounter for screening mammogram for malignant neoplasm of breast HPV Routine 04/01/2024 HEPATITIS C SCREENING Routine 04/01/2024 HIV SCREENING Routine 04/01/2024 LIPID PANEL Routine 02/07/2024 from Last 3 Months or Most Recently Relevant to Health Maintenance Results * Exercise stress test (03/14/2025 11:44 AM EDT) Exercise/inject ion duration (min) 9 CV STRESS ONLY Exercise/inject ion duration (sec) 23 CV STRESS ONLY Peak SBP 124 mmHg CV STRESS ONLY Peak DBP 72 mmHg CV STRESS ONLY Peak HR 181 bpm CV STRESS ONLY Baseline HR 105 bpm CV STRES S ONLY Baseline SBP 115 mmHg CV STRE SS ONLY Baseline DBP 81 mmHg CV STRE SS ONLY Estimated workload 11.3 METS CV STRESS ONLY Percent HR 98 % CV STRESS ONLY Rate Pressure Product 22,444.0 mmHg*bpm CV STRESS ONLY Target HR 157 bpm CV STRESS ONLY O2 sat rest 98 % CV STRES S ONLY O2 sat peak 98 % CV STRES S ONLY Angina Index 0 CV STRE SS ONLY Max HR Percent 97 % CV ST RESS ONLY ST Depression (mm) 0 mm CV STRESS ONLY Anatomical Region Laterality Modality Cardiac Diagnost ic 03/14/2025 11:0 9 AM EDT 03/14/2025 11:43 AM EDT Narrative 03/14/2025 5:25 PM EDT Normal exercise EKG stress test at a target heart rate and adequate functional capacity. Stress ECG was normal. Exercise capacity was average. Normal blood pressure response. Chest pressure occurred in early exercise not increasing in severity and resolved in recovery following use of albuterol. Consider pulmonary cause of chest pressure. Stress Findings A Guille protocol stress test was performed. Overall, the patient's exercise capacity was average. The patient reached stage 4. Total stress time was 9 min and 23 sec. The patient experienced no angina during the test. The test was stopped because the patient experienced fatigue and atypical chest pain. The patient's hemodynamic response was adequate for diagnosis. Blood pressure demonstrated a normal response. Heart rate demonstrated a normal response. Onset of symptoms occurred at Stage 0.5 of the protocol. chest pressure in early exercise not increasing in severity and resolved in recovery following use of albuterol ECG Mrs. Chen is a 35 year old female with no cardiac history and additional history of asthma and lupus who presents for evaluation of atypical chest pressure and palpitations with standard stress test. The ECG shows normal sinus rhythm. There were no arrhythmias during stress. There is no ST segment changes during stress. There were no arrhythmias during recovery. The result of the stress ECG was negative for ischemia. us Herminio WOLFE CV STRESS PROCEDURES Fi nal Result * MG Mammo Digital Screening w Andres bilat (03/03/2025 2:45 PM EDT) Anatomical Region Laterality Modality Breast Bilateral Mammography 03/04/2025 11:5 3 AM EDT Impressions 03/04/2025 11:57 AM EDT No mammographic evidence of malignancy. A negative mammogram in the presence of a clinically suspicious palpable abnormality does not preclude the possibility of malignancy or alter the indications for biopsy. PQRI CPT II 3342F Code 55951, 10847 PQRI 225 CPT II 7025F TISSUE DENSITY: The breasts are extremely dense, which lowers the sensitivity of mammography. (BI-RADS category D) IMPRESSION: Benign. BI-RADS CATEGORY: 1 - NEGATIVE RECOMMENDATION: Screening bilateral mammogram is recommended in 1 year. Mammo Location: [facility], [address] [place] [address] -------- FINAL REPORT -------- Dictated By: Hans Castellanos Dictated Date: 03/04/2025 11:53 ET Assigned Physician: Hans Castellanos Reviewed and Electronically Signed By: Hans Castellanos Signed Date: 03/04/2025 11:57 ET Workstation ID: [id number] Transcribed By: Self Edit Transcribed Date: 03/04/2025 11:53 ET Narrative 03/04/2025 11:57 AM EDT CLINICAL: The patient is a 34 years Female presenting with elevated risk of breast cancer, presenting for baseline screening mammography. COMPARISON: None TECHNIQUE: Full-field digital mammography of the breasts bilaterally consisting of tomosynthesis in MLO and CC projection is performed in the Avokiae 2000-D unit. Computer aided detection utilizing the iCAD system was utilized. FINDINGS: The breasts are seen to be composed of a combination of fatty and extremely dense fibroglandular elements. A few scattered benign calcifications, most if not all of which are dermal, are noted. There is no suspicious cluster of microcalcifications, mass, or area of architectural distortion. There is no skin thickening or nipple retraction. Procedure Note Hans Castellanos MD - 03/04/2025 CLINICAL: The patient is a 34 years Female presenting with elevated riskof breast cancer, presenting for baseline screening mammography. COMPARISON: None TECHNIQUE: Full-field digital mammography of the breasts bilaterallyconsisting of tomosynthesis in MLO and CC projection is performed in theMDC Telecomographe 2000-D unit. Computer aided detection utilizing the Crowdwaveystem was utilized. FINDINGS: The breasts are seen to be composed of a combination of fattyand extremely dense fibroglandular elements. A few scattered benigncalcifications, most if not all of which are dermal, are noted. There isno suspicious cluster of microcalcifications, mass, or area ofarchitectural distortion. There is no skin thickening or nippleretraction. IMPRESSION: No mammographic evidence of malignancy. A negative mammogram in the presence of a clinically suspicious palpableabnormality does not preclude the possibility of malignancy or alter theindications for biopsy. PQRI CPT II 3342F Code 62494, 74677 PQRI 225 CPT II 7025F TISSUE DENSITY: The breasts are extremely dense, which lowers thesensitivity of mammography. (BI-RADS category D) IMPRESSION: Benign. BI-RADS CATEGORY: 1 - NEGATIVE RECOMMENDATION: Screening bilateral mammogram is recommended in 1 year. Mammo Location: [facility], [facility], [address] [place] [id number] -------- FINAL REPORT -------- Dictated By: Hans Castellanos Dictated Date: 03/04/2025 11:53 ET Assigned Physician: Hans Castellanos Reviewed and Electronically Signed By: Hans Castellanos Signed Date: 03/04/2025 11:57 ET Workstation ID: [id number] Transcribed By: Self Edit Transcribed Date: 03/04/2025 11:53 ET Kat Fraser NP IMG BI PROCEDURES Final Result * Cervical Cancer Screening: HPV (04/01/2024) Cervical Cancer Screening: HPV abstracted, negative Historical Provider HEALTH MAINTENANCE Final Result * HIV Screening (04/01/2024) HIV Screening abstracted Historical Provider HEALTH MAINTENANCE Final Result * Hepatitis C Screening (04/01/2024) Hepatitis C Screening abstracted Historical Provider HEALTH MAINTENANCE Final Result * Lipid panel (02/07/2024) LDL/HDL Ratio 2 0 - 4 Triglycerides 112 0 - 150 mg/dL Cholesterol 191 0 - 200 mg/dL HDL 84 >=40 mg/dL LDL Cholesterol 85 0 - 100 mg/dL Blood Venous blood specimen / Unknown Historical Provider LAB BLOOD ORDERABLES Linda l Result from Last 3 Months or Most Recently Relevant to Health Maintenance Insurance [facility] Care Teams Conveyor Feeder Offbearer Relationship Specialty Start Date End Date Aleshia Gamez MD [address] [place] [address] PCP - General Internal Medicine 04/21/25
--- OUTSIDE RECORDS SUMMARY | 2025-05-15 14:49 | XMS_ITS | Encounter Summary ---
Author Organization [facility] Address [address] [place] [address] Care Team Providers Care Cabinet Builder Name Role Phone Aleshia Gamez MD Primary Care Provider [phone] Reason for Visit * Reason Onset Date Comments Reschedule 05/09/2025 Encounter Details Date Type Department Care Team (Late st Contact Info) Description 05/09/2025 Telephone Internal Medicine - [facility] [address] [place] [phone] Janneth Hoffmann MA Social History Tobacco Use Types Packs/Day Years [...] care for your loved ones. For example, exceptional children teacher assistant or elderly care for an older adult? [...] of this encounter Progress Notes * Janneth Hoffmann MA - 05/09/2025 9:50 AM EDT A voicemail was left that pt needs to reschedule the appt with PCP. An appt was scheduled with her for the first available, 05/15 at 9:30. If patient is unable to make it please transfer to A side. She has to see Dr. Gamez ONLY for this issue she cannot see anyone else. documented in this encounter Plan of Treatment Not on file documented as of this encounter Visit Diagnoses Not on filedocumented in this encounter Care Teams Cabinet Builder Relationship Specialty Start Date End Date Aleshia Gamez MD [address] [facility] [place] [address] PCP - General Internal Medicine 04/21/25 documented as of this encounter
--- OUTSIDE RECORDS SUMMARY | 2025-05-15 14:49 | XMS_ITS ---
Author Organization [address] Address [address] [place] [phone] Phone Care Team Providers Care General Expeditor Name Role Phone Aleshia Gamez MD Primary Care Provider [phone] Community Health Worker Program Status:Ongoing (Active) Start date:05/08/2025 Enrollment date:05/08/2025 Enrollment reason:Referred from clinic Overview Community Health Worker Program Case Team Name Relationship Phone Ena De Luna Community Health Worker(Responsi ble Staff) Continued Care and Services Coordination
--- OUTSIDE RECORDS SUMMARY | 2025-05-15 14:49 | XMS_ITS | Encounter Summary ---
Author Organization [facility] Address [address] [place] [address] Care Team Providers Care Property Damage Claims Adjustor Name Role Phone Aelshia Gamez MD Primary Care Provider [phone] Reason for Referral * Consultation (Routine) - Closed Specialty Diagnoses / Procedures Referred By Conthayde t Referred To Contact Acupuncture Diagnoses Neck pain Left shoulder pain, unspecified chronicity Rochelle Son NP [address] [place] [address] Phone: tel: fax: External Performed Referral ID Status Reason Start Date Expiration Date V isits Requested Visits Authorized [id number] Closed Specialty Services Required 05/05/2025 05/05/2026 1 1 Reason for Visit * Reason Onset Date Comments Referral 05/02/2025 Encounter Details Date Type Department Care Team (Late st Contact Info) Description 05/02/2025 Telephone Internal Medicine - [address] [phone] Aleshia Gamez MD [address] [place] [address] Social History Tobacco Use Types Packs/Day Years [...] as of this encounter Progress Notes * Rochelle Son NP - 05/05/2025 12:32 PM EDT Signed * Janneth Hoffmann MA - 05/05/2025 12:27 PM EDT Please review, PCP has not seen pt yet. * Blanka Reinoso RN - 05/02/2025 4:25 PM EDT RN called the patient who reports she believes it is well sense who needs the referral. Patient hasbeen going to the stain sprayer for left shoulder/neck musculoskeletal concerns. RN will pend referral. [facility]. Dr. Lora Archibald * Remedios Puri - 05/02/2025 4:03 PM EDT Patient is requesting a referral to [facility] (Acupuncture). Lora Archibald is who she sees there. Would also need it back dated to 03/28/25 documented in this encounter Plan of Treatment Scheduled Referrals Name Type Priority Associated Diagnoses Order Schedule Ambulatory referral for Acupuncture Outpatient Referral Routine Neck pain Left shoulder pain, unspecified chronicity 1 Occurrences starting 05/05/2025 until 05/02/2026 documented as of this encounter Visit Diagnoses Diagnosis Neck pain- Primary Cervicalgia Left shoulder pain, unspecified chronicity documented in this encounter Care Teams Property Damage Claims Adjustor Relationship Specialty Start Date End Date [facility] [address] [facility] [address] PCP - General Internal Medicine 04/21/25 documented as of this encounter
== END 2025-05-15 13:29 | disposition home or self-care (01) ==
LOC: HO.RHES 12:45
PROVIDERS: PCP Internal Medicine Rheumatology; Visit Provider Internal Medicine Rheumatology
DX: M32.8 Other forms of systemic lupus erythematosus (principal); R29.898 Other symptoms and signs involving the musculoskeletal system; S46.812A Strain of other muscles, fascia and tendons at shoulder and upper arm level, left arm, initial encounter; Z79.899 Other long term (current) drug therapy; M35.00 Sjogren syndrome, unspecified
CPT/HCPCS: 99214

== ENCOUNTER → 2025-05-15 12:45 | Outpatient (BNVA) | payer OTHER, SELFPAY | PROVIDERS: PCP Internal Medicine Rheumatology; Visit Provider Internal Medicine Rheumatology | DX: M32.8 Other forms of systemic lupus erythematosus (principal); M35.00 Sjogren syndrome, unspecified; R29.898 Other symptoms and signs involving the musculoskeletal system; S46.812A Strain of other muscles, fascia and tendons at shoulder and upper arm level, left arm, initial encounter; X58.XXXA Exposure to other specified factors, initial encounter; Y93.9 Activity, unspecified; Y92.9 Unspecified place or not applicable; Y99.9 Unspecified external cause status; Z79.899 Other long term (current) drug therapy | CPT/HCPCS: 99212 ==

== ENCOUNTER 2025-08-15 13:35 | Outpatient (REF) | payer OTHER, SELFPAY ==
[2025-08-15 15:13] LABS: Appearance Urine Turbid; Glucose Urine UA Negative (Negative); PH >= 9.0 (5.0-9.0); Specific Gravity - Urine 1.015 (1.005-1.025)
--- OUTSIDE RECORDS SUMMARY | 2025-08-15 15:17 | XMS_ITS ---
Author Organization [address] Address [address] [place] [phone] Phone Care Team Providers Care Parasitologist Name Role Phone Aleshia Gamez MD Primary Care Provider [phone] Community Health Worker Program Status:Closed (Closed) Start date:05/08/2025 Enrollment date:05/08/2025 Enrollment reason:Referred from clinic End date:08/13/2025 Close reason:Completed program Overview Community Health Worker Program Continued Care and Services Coordination
--- OUTSIDE RECORDS SUMMARY | 2025-08-15 15:17 | XMS_ITS | Clinical Summary ---
Author Organization [facility] [address] [facility] Building Address [address] [place] [address] Phone Care Team Providers Care Cougar Hunter Name Role Phone Aleshia Gamez MD Primary Care Provider [phone] Allergies Active Allergy Reactions Criticality Noted Date [...] OMEGA-3 FATTY ACIDS ORAL Take by mouth. Moran-3 Fatty Acids (FISH OIL) 600 MG Cap 10/01/19 20 Active benzoyl peroxide (BENZAC AC) 10 % external wash Apply 1 Application topically 1 (one) time each day. 09/03/19 25 Active ketoconazole (NIZORAL) 2 % shampoo Apply 1 Application topically 2 (two) times a week. 09/03/19 25 Active LORazepam (ATIVAN) 0.5 mg tablet Take 1 tablet (0.5 mg total) by mouth every 8 (eight) hours if needed. 09/03/19 25 Active medroxyPROGESTER one (Depo-Provera) 150 mg/mL injectionIndicat ions:Encounter for surveillance of injectable contraceptive Inject 1 mL (150 mg total) into the shoulder, thigh, or buttocks every 3 (three) months. 1 mL 3 02/05/20 25 Active fluticasone propionate (FLONASE) 50 mcg/actuation nasal spray ADMINISTER 2 SPRAYS INTO EACH NOSTRIL 1 (ONE) TIME EACH DAY IF NEEDED FOR RHINITIS. 48 mL 06/13/20 25 Active lidocaine (LIDODERM) 5 % patch Apply 1 patch topically 1 (one) time each day. Apply to painful area 12 hours per day, remove for 12 hours. 14 each 06/30/20 25 Active tiZANidine (Zanaflex) 4 mg tablet Take 1 tablet (4 mg total) by mouth every 8 (eight) hours if needed for muscle spasms for up to 7 days. 21 tablet 06/30/20 25 Active omeprazole (PriLOSEC) [address] capsule TAKE 1 CAPSULE BY MOUTH EVERY DAY IN THE MORNING 90 capsule 07/15/20 25 Active fexofenadine (PIPPA) 180 mg tabletIndication s:Ear itch TAKE 1 TABLET BY MOUTH 1 TIME EACH DAY. 90 tablet 07/15/20 25 Active Ventolin HFA 90 mcg/actuation inhalerIndicatio ns:Mild intermittent reactive airway disease without complication INHALE 2 PUFFS BY MOUTH EVERY 6 HOURS NEEDED FOR WHEEZE 18 each 1 07/22/20 25 Active famotidine (PEPCID) 20 mg tablet TAKE 1 TABLET BY MOUTH TWICE A DAY 180 tablet 08/04/20 25 Active naproxen (NAPROSYN) 500 mg tablet TAKE 1 TABLET (500 MG TOTAL) BY MOUTH 2 (TWO) TIMES A DAY WITH MEALS. NEEDED FOR PELVIC PAIN. 90 tablet 1 08/06/20 25 2025 Active naproxen (NAPROSYN) 500 mg tablet TAKE 1 TABLET (500 MG TOTAL) BY MOUTH 2 (TWO) TIMES A DAY WITH MEALS. NEEDED FOR PELVIC PAIN. 180 tablet 1 01/30/20 25 2024 Discontinued famotidine (PEPCID) 20 mg tablet TAKE 1 TABLET BY MOUTH TWICE A DAY 180 tablet 1 02/04/20 25 2024 Discontinued Ventolin HFA 90 mcg/actuation inhalerIndicatio ns:Mild intermittent reactive airway disease without complication TAKE 2 PUFFS BY MOUTH EVERY 6 HOURS NEEDED FOR WHEEZE 18 each 1 05/12/20 25 2024 Discontinued Active Problems Problem Noted [...] Encounters Date Type Department Care Team Description 08/13/2025 [facility] Community Health Worker Program [address] [place] [phone] Ena De Luna 07/28/2025 [facility] [phone] Aleshia Gamez MD 07/14/2025 Telephone [facility] - [facility] [address] [place] [address] Alsehia Gamez MD 07/04/2025 [facility] [phone] Aleshia Gamez MD 07/03/2025 [facility] [phone] Aleshia Gamez MD 06/30/2025 5:00 PM EST [facility] [phone] Po Avelar PA Chronic left shoulder pain (Primary Dx) 05/20/2025 3:03 PM EDT - 05/20/2025 11:59 PM EDT Hospital Encounter [facility] MRI [address] [place] [id number] Cervicalgia; Radiculopathy, cervical region; Myalgia, other site Discharge Disposition: Home or Self Care 05/20/2025 Telephone Internal Medicine - [facility] [address] [place] [address] Aleshia Gamez MD 05/16/2025 Telephone Internal Medicine - [address] [phone] Janneth Hoffmann MA 05/16/2025 [facility] [address] [place] [phone] Aleshia Gamez MD 05/16/2025 [facility] [phone] Aleshia Gamez MD from Last 3 Months Immunizations Immunization Administration Dates Next Due HPV 9-valent (Gardisil) 9yo to less than 46yo 11/03/2015 HPV, Quadrivalent 08/28/2015,11/14/2007,06/05/20 07 Hepatitis B (Ydbfgkf-G-Thmnw , Recombivax HB-Adult) 19yo and older 09/13/2016,06/09/2010,06/27/2001,02/16,01/11/2001 [...] ety of food including fruits and vegetables? Yes 08/13/2025 Access to Healthcare Answer Date Record ed [...] and air conditioning / heating? Very hard 08/13/2025 Transportation Answer Date Recorded Has the lack [...] before we got money to buy more. Never true 08/13/2025 Within the past 12 months th e food we bought just didn't last and we didn't have money to get more. Never true 08/13/2025 Dependent Care Answer Date Recorded Do you need help finding or paying for care for your loved ones. For example, children's service worker or elderly care for an older adult? [...] Date Recorded What is your living situation? Unrecognized valu e 05/08/2025 Comments No Sex and Gender Information [...] Sign Reading Time Taken Comments Blood Pressure 100/71 06/30/2025 5:13 PM EST Pulse 104 06/30/2025 5:13 PM EST Temperature 36.4 C (97.5 F) 06/30/2025 5:13 PM EST Respiratory Rate 18 02/04/2025 1:48 PM EDT Oxygen Saturation 98% 06/30/2025 5:13 PM EST Inhaled Oxygen Concentration - - Weight 46.3 kg (102 lb) 03/14/2025 11:04 AM EDT Height 149.9 cm (4' 11 ) 03/14/2025 11:04 AM EDT Body Mass Index 20.6 03/14/2025 11:04 AM EDT Plan of Treatment Upcoming Encounters Date Type Department Care Team (Late st Contact Info) Description 11/10/2025 2:30 PM EDT [facility] [address] [place], [place] [phone] Aleshia Gamez MD [address] [place] [address] Health Maintenance Due Date Last Done Comments Non-Opioid Controlled Substance Agreement 1990 Pneumococcal Vaccine: Pediatrics (0 to 5 Years) and At-Risk Patients (6 to 49 Years) (1 of 2 - PCV) 2009 Depression Screening 08/28/2024 COVID-19 Vaccine ( - 2024- season) 2025 Influenza Vaccine (#1) 2025 08/19/2008 Drug Screen 07/05/2025 07/05/2024 Social Influencers of Health Screening 08/13/2026 08/13/2025 Cholesterol Screening (Lipid Panel) 02/06/2029 02/07/2024, 02/07/2024 [...] Procedure Name Priority Date/Time Associated Diagnosis Comments MR CERVICAL SPINE WO CONTRAST Routine 05/20/2025 4:14 PM EDT Cervicalgia Radiculopathy, cervical region Myalgia, other site DRUG ABUSE SCREEN EXPANDED WITH REFLEX CONFIRMATION, URINE Add-On 07/05/2024 6:58 AM EST HPV Routine 04/01/2024 HEPATITIS C SCREENING Routine 04/01/2024 HIV SCREENING Routine 04/01/2024 LIPID PANEL Routine 02/07/2024 from Last 3 Months or Most Recently Relevant to Health Maintenance Results * MR Cervical Spine wo Contrast (05/20/2025 4:14 PM EDT) Anatomical Region Laterality Modality C-spine, Spine Magnetic Resonan ce 05/20/2025 4:29 PM EDT Impressions 05/20/2025 4:37 PM EDT Very mild degenerative changes of the cervical spine. No disc herniation. No significant spinal or foraminal stenosis. -------- FINAL REPORT -------- Dictated By: Jose Perez Dictated Date: 05/20/2025 16:29 ET Assigned Physician: Jose Perez Reviewed and Electronically Signed By: Jose Perez Signed Date: 05/20/2025 16:37 ET Workstation ID: [id number] Transcribed By: Self Edit Transcribed Date: 05/20/2025 16:29 ET Narrative 05/20/2025 4:37 PM EDT PROCEDURE: MRI of the cervical spine without intravenous contrast. TECHNIQUE: Sagittal and axial multisequence MRI of the cervical spine without intravenous contrast administration. HISTORY: Cervicalgia, radiculopathy COMPARISON: None. FINDINGS: Limited views of the brain and skull base are unremarkable. Visualized paraspinous soft tissues are normal. No suspicious marrow infiltrative lesion. Normal alignment. The cord is normal in caliber, contour, and signal. Cervical disc levels: C2-3: No significant disc or facet abnormality. No spinal or foraminal stenosis. C3-4: Minimal degenerative irregularity of the facet joints. No spinal or foraminal stenosis. C4-5: Minimal degenerative irregularity of the facet joints. No spinal or foraminal stenosis. C5-6: Minimal degenerative irregularity of the facet joints. No spinal or foraminal stenosis. C6-7: Small anterior endplate osteophytes. Minimal degenerative irregularity of the facet joints. No spinal or foraminal stenosis. C7-T1:. Minimal degenerative irregularity of the facet joints. No spinal or foraminal stenosis. Procedure Note Jose Perez MD - 05/20/2025 PROCEDURE: MRI of the cervical spine without intravenous contrast. TECHNIQUE: Sagittal and axial multisequence MRI of the cervical spinewithout intravenous contrast administration. HISTORY: Cervicalgia, radiculopathy COMPARISON: None. FINDINGS: Limited views of the brain and skull base are unremarkable. Visualized paraspinous soft tissues are normal. No suspicious marrow infiltrative lesion. Normal alignment. The cord is normal in caliber, contour, and signal. Cervical disc levels: C2-3: No significant disc or facet abnormality. No spinal or foraminalstenosis. C3-4: Minimal degenerative irregularity of the facet joints. No spinal orforaminal stenosis. C4-5: Minimal degenerative irregularity of the facet joints. No spinal orforaminal stenosis. C5-6: Minimal degenerative irregularity of the facet joints. No spinal orforaminal stenosis. C6-7: Small anterior endplate osteophytes. Minimal degenerativeirregularity of the facet joints. No spinal or foraminal stenosis. C7-T1:. Minimal degenerative irregularity of the facet joints. No spinalor foraminal stenosis. IMPRESSION: Very mild degenerative changes of the cervical spine. No disc herniation.No significant spinal or foraminal stenosis. -------- FINAL REPORT -------- Dictated By: Jose Perez Dictated Date: 05/20/2025 16:29 ET Assigned Physician: Jose Perez Reviewed and Electronically Signed By: Jose Perez Signed Date: 05/20/2025 16:37 ET Workstation ID: [id number] Transcribed By: Self Edit Transcribed Date: 05/20/2025 16:29 ET [facility] MRI PROCEDURES Final Resul t * (ABNORMAL) Drug abuse screen expanded with reflex confirmation, urine (07/05/2024 6:58 AM EST) Amphetamine Screen, Ur Positive(A ) Negative LAB CHEMISTRY METHOD 9:04 AM EST [facility] Comment:Certain OTC medicati ons containing ephedrine, phenylephrine, pseudoephedrine and phenylpropanolamine can cause false positive results. Barbiturate Screen, Ur Negative Negative LAB CHEMISTRY METHOD 4 9:04 AM EST [facility] Benzodiazepine Screen, Ur Positive(A ) Negative LAB CHEMISTRY METHOD 4 9:04 AM EST [facility] Cocaine Screen, Ur Negative Negative LAB CHEMISTRY METHOD 4 9:04 AM [facility] Opiate Screen, Ur Negative Negative LAB CHEMISTRY METHOD 4 9:04 AM [facility] Cannabinoid (THC) Screen, Ur Positive(A ) Negative LAB CHEMISTRY METHOD 4 9:04 AM EST [facility] Comment:Specimens from patie nts taking pantoprazole sodium (Protonix) have been shown to produce false positive results. Fentanyl, Ur Negative Negative LAB CHEMISTRY METHOD 4 9:04 AM [facility] Oxycodone Screen, Ur Negative Negative LAB CHEMISTRY METHOD 4 9:04 AM [facility] Urine Urine specimen obtained by clean catch procedure / Unknown Non-blood Collection / Unknown 07/05/2024 6:58 AM EST 07/05/2024 8:31 AM EST [facility] - 07/05/2024 9:04 AM EST Assay cutoffs: Amphetamines 1000 ng/mL Barbiturates 200 ng/mL Benzodiazepines 200 ng/mL Cocaine 300 ng/mL Fentanyl 1 ng/mL Opiates 300 ng/mL Oxycodone 100 ng/mL THC 50 ng/mL Semi-quantitative assay for screening purposes only. Unconfirmed screening result should not be used for non-medical purposes. *POSITIVE RESULTS ARE AUTOMATICALLY SENT FOR ALTERNATE METHOD CONFIRMATION* Santiago Wagner MD LAB URINE ORDERABLES Final Resu lt [facility]) [facility] [address] [place] [address], [place] [phone] * Cervical Cancer Screening: HPV (04/01/2024) Pathologist [facility] Cervical Cancer Screening: HPV abstracted, negative Florencio Provider HEALTH MAINTENANCE Final Result * HIV [...] Most Recently Relevant to Health Maintenance Insurance [facility] [employer] Care Teams Cougar Hunter Relationship Specialty Start Date End Date Aleshia Gamez MD [address] [place] [address] PCP - General Internal Medicine 04/21/25
--- OUTSIDE RECORDS SUMMARY | 2025-08-15 15:17 | XMS_ITS | Encounter Summary ---
Author Organization [facility] Address [address] [place] [address] Care Team Providers Care Data Coder Operator Name Role Phone Aleshia Gamez MD Primary Care Provider [phone] Reason for Visit * Reason Onset Date Comments Referral 12/31/2024 Encounter Details Date Type Department Care Team (Late st Contact Info) Description 12/31/2024 Telephone Internal Medicine - [facility] [address] [place] [phone] Mariaelena Bee, [address] [place] [address] Social History Tobacco Use Types Packs/Day Years [...] What insurance does the patient have today? [facility] Referrals cannot be processed if the insurance is not accurate. If the insurance listed above in red is NO BILLING INFORMATION FOUND FOR THIS ENCOUTNER The patients correct insurance must be obtained and registered in [facility] or their referral can not be [...] this visit: Initial Visit Address of Specialist: [employer] [address] Phone # of Specialist: [phone] Fax #: (if applicable): [phone] Does patient have an appointment scheduled?: no Date of appointment- (including a retro-request): n/a Is this appointment related to: n/a documented in this encounter Plan of Treatment Upcoming Encounters Date Type Department Care Team (Late st Contact Info) Description 11/10/2025 2:30 PM EDT Office Visit Internal Medicine - [facility] [address] [place], [place] [phone] Aleshia Gamez MD [address] [place] [address] documented as of this encounter Visit Diagnoses Not on filedocumented in this encounter Care Teams Data Coder Operator Relationship Specialty Start Date End Date Aleshia Gamez MD [address] [place] [address] PCP - General Internal Medicine 04/21/25 documented as of this encounter
--- OUTSIDE RECORDS SUMMARY | 2025-08-15 15:17 | XMS_ITS | Encounter Summary ---
Author Organization [facility] Address [address] [place] [address] Care Team Providers Care Hand Ii Cutter Name Role Phone Aleshia Gamez MD Primary Care Provider [phone] Reason for Visit * Reason Onset Date Comments Closing Program Enrollment 08/13/2025 Encounter Details Date Type Department Care Team (Late st Contact Info) Description 08/13/2025 Telephone [facility] [address] [place] [address] Ena De Luna Social History Tobacco Use Types Packs/Day Years [...] care for your loved ones. For example, child care centre director or elderly care for an older adult? [...] as of this encounter Progress Notes * Ena De Luna - 08/13/2025 10:31 AM EST Community Health Worker Note 08/13/2025 10:31 AM EST Patient: Hemalatha Laurent : 1990 Age: 35 y.o. Insurance: Payor: [employer] / Plan: [employer] / Product Type: *No Product type* / Primary Care Doctor: Aleshia Gamez MD Patient social needs have been fully addressed, receiving nutrition assistance from [employer] through a food voucher and did receive Nutrition EducationClasses. Currently there are no outstandingsocial needs. Patient possesses contact information for this science writer and is aware of how to reach in case that requires any assistance, resources or support. The patient's enrollment in the program will now be formally closed. Ena De Luna Community Health Worker documented in this encounter Plan of Treatment Upcoming Encounters Date Type Department Care Team (Late st Contact Info) Description 11/10/2025 2:30 PM EDT Office Visit Internal Medicine - [facility] [address] [facility] [place] [phone] Aleshia Gamez MD [address] [facility] [place] documented as of this encounter Visit Diagnoses Not on filedocumented in this encounter Care Teams Hand Ii Cutter Relationship Specialty Start Date End Date Aleshia Gamez MD [facility] [place] PCP - General Internal Medicine 04/21/25 documented as of this encounter
[2025-08-15 16:58] LABS: Total Protein Urine Random < 7 mg/dL (<12)
[2025-08-15 18:56] LABS: MANUAL DIFF FLAG NO
[2025-08-15 19:00] LABS: Hematocrit 38.1 % (37.0-47.0); Hemoglobin 12.6 g/dl (12.0-16.0); Imm Gran Abs Auto 0.01 X10*3/uL (0.00-0.03); Imm Gran Pct Auto 0.2 % (0.0-0.4); Lymphocytes Absolute Auto 1.4 X10*3/uL (1.2-4.9); Mean Corpuscular HGB Conc 33.1 g/dl (31.0-35.0); Mean Corpuscular Hemoglobin 30.5 pg (27.0-33.0); Mean Corpuscular Volume 92.3 fL (80.0-98.0); NRBC Abs Auto 0.000 X10*3/uL (0.0-0.012); NRBC Pct Auto 0.0 /100WBC (0.0-0.2); Platelet Count 257 X10*3/uL (160-400); Red Blood Count 4.13 X10*6/uL (4.20-5.50); White Blood Count 6.4 X10*3/uL (4.8-10.8)
[2025-08-15 19:22] LABS: Alanine Aminotransferase 18 U/L (0-31); Aspartate Amino Transferase 19 U/L (5-31); Estimated Glomerular Filt Rate > 60
== END 2025-08-15 13:36 | disposition home or self-care (01) ==
LOC: HO.HKASLDS 13:35
PROVIDERS: PCP Internal Medicine; Visit Provider Internal Medicine Rheumatology
DX: M32.9 Systemic lupus erythematosus, unspecified (principal)
CPT/HCPCS: 36415; 81001; 82565; 82570; 84156; 84450; 84460; 85025; 85652; 86140; 86160; 86225